=== PATIENT | female | born 1945 | race Caucasian/White ===

== ENCOUNTER 2025-10-05 03:21 | Inpatient (IN) | payer MEDICARE, BC, SELFPAY ==
--- OUTSIDE RECORDS SUMMARY | 2008-07-01 07:03 | XMS_ITS | Continuity of Care Document ---
Author Organization [facility] Address [address] [place] [address] Phone Care Team Providers Care District Court Reporter Name Role Phone Eduar QUISPE MD, Jordy Unavailable Unavailable Advance Directives Directive Yes / No Effective Date File Name No Information Encounters Encounter Description Practice Location Reason(s) For Visit Diagnoses Date Provider Providers Copied on Encounter [facility], [address], [place], [place], [id number], [place] tel:[phone] No Information 8 Eduar Spence. [address], [place], [place], [facility], [place]. tel:[phone] Referring Provider: Jordy Rodriguez, [address] [place], [place], [facility]. tel:[phone] Family History Family Member Type Diagnosis Age At Onset No Information Payers Payer name Insurance type Covered constitution party ID Authoriza tion(s) [employer] BL [id number] Social History Type Description Quantity Date Captured Comments Sex Female Smoking Status No Information Chief Complaint And Reason For Visit No Information Reason For Referral Reason For Referral No Information History Of Present Illness Encounter Date Complaint History Of Prese nt Illness No Information Functional Status Date Functional Assessmen t No Information Instructions Date Instruction Additional Infor mation No Information Assessments Type Assessment Date No Information Patient Care Teams Name Effective Dates (start - stop) Status Members No Information
--- OUTSIDE RECORDS SUMMARY | 2025-08-26 04:46 | XMS_ITS | Continuity of Care Document ---
Author Organization [facility] Address [address] [address] [place] [address] Phone Care Team Providers Care Retail Merchandising Manager Name Role Phone George Weaver MD Unavailable Unavailable Allergies, Adverse Reactions, Alerts Substance Reaction Status Criticality HYDROMORPHONE HCL Hallucinations Active No Infor mation DIPHENHYDRAMINE HCL Unknown Active No Infor mation soap Rash Active No Information povidone-iodine Rash Active No Informati on DIPHENHYDRAMINE HCL red face Active No Infor mation Medications Medication Instructions Dosage Effective Dates (start - stop) Status Comments levothyroxine 75 mcg capsule take 1 by Oral route every day 1 - Active losartan 50 mg tablet take 1.5 tablet by oral route every day - Active metoprolol tartrate 50 mg tablet take .5 tablet in AM, 1 in PM daily - Active Nexium 40 mg capsule,delayed release take 1 capsule by oral route every day 40 MG - Active ezetimibe 10 mg tablet take 1 tablet by oral route every day 10 MG - Active Flovent HFA 110 mcg/actuation aerosol inhaler inhale 1 puff by inhalation route 2 times every day - Active Aeroneb Go Nebulizer - Activ e azelastine 137 mcg (0.1 %) nasal spray aerosol spray 2 spray by intranasal route every day in each nostril 2 spray - Active azelastine 0.05 % eye drops instill 1 drop by ophthalmic route 2 times every day into affected eye(s) 1.00 drop - Active aspirin 81 mg chewable tablet chew 1 tablet by oral route every day 81 MG - Active ipratropium 0.5 mg-albuterol 3 mg (2.5 mg base)/3 mL nebulization soln inhale 2 milliliter by nebulization route 4 times every day 2 milliliter - Active latanoprost 0.005 % eye drops instill 1 drop by ophthalmic route every day into affected eye(s) in the evening 1.00 drop - Active cyclobenzaprine 10 mg tablet take 1 tablet (10MG) by oral route 1 times every day - Active Symbicort 160 mcg-4.5 mcg/actuation HFA Aerosol Inhaler inhale 2 puff by inhalation route every day in the morning and evening 2 puff - Active Procedures Procedure Date Ugi Endo; W/endo Ultrasound Ex Established Level 3 Established Level 3 Ugi Endo; W/us Guid Asp/bx Ugi Endo; W/endo Ultrasound Ex Ugi Endo; W/us Guid Asp/bx Ugi Endo; W/us Guid Asp/bx Esophageal Motility Study Offic/outpt E&m Estab Low-mod Ugi Endo; W/remov Tumor/les-sn Ugi Endo; W/bx 1/mx Level Iv-surg Path Gross/micro Offic/outpt E&m New Mod-md Ugi Endo; W/bx 1/mx Level Iv-surg Path Gross/micro 13 Level Iv-surg Path Gross/micro 13 Advance Directives Directive Yes / No Effective Date File Name No Information Encounters Encounter Description Practice Location Reason(s) For Visit Diagnoses Date Provider Providers Copied on Encounter [facility], [address] [address], [place], [place], [address], [place] tel:[phone] [facility] No Information 5 Meg Vazquez. [address], [place], [address] , [place]. tel: [phone] [facility], [address] [address], [place], [place], [address], [place] tel:[phone] [facility] Pancreas cyst Jul- 5 Meg Vazquez. [address] [facility] [address], [place], [place], [address] , [place]. tel: [phone] Candy Beckman MD. [phone] [facility], [address] [address], [place], [place], [address], [place] tel:[phone] [facility] Pancreas cyst Jan- 5 Meg Vazquez. [address] [facility] [address], [place], [place], [address] , [place]. tel: [phone] [facility], [address] [address], [place], [address], [place] tel:[phone] [facility] No Information 5 Meg Vazquez. [address] [facility] [address], [place], [address] , [place]. tel: [phone] Referring Provider: George Weaver MD, [address] [facility] [address], [place], [address]. tel:[phone] Established Level 3 [facility], [address] [address], [place], [address], [place] tel:[phone] [facility] GI Symptoms or Concerns (chief complaint) Pancreas cyst Dec-0 5 Meg Vazquez. [address] [facility] [address], [place], [address] , [place]. tel: [phone] Candy Beckman MD. tel:[phone] ng Provider: Dean Harp MD, [address] [place] [address], [place], [address]. [phone] [facility], [address] [address], [place], [address], [place] tel:[phone] [facility] GI Symptoms or Concerns (chief complaint) No Information 5 Meg Vazquez. [address] [facility] [address], [place], [address] , [place]. tel:[phone] Candy Beckman MD. [phone] [facility], [address] [address], [place], [address], [place] tel:[phone] [facility] No Information 4 Meg Vazquez. [address] [facility], [place], [place], [address] , [place]. tel:[phone] Referring Provider: George Weaver MD, [address] [facility] [address], [place], [address]. [phone] [facility], [address] [address], [place], [address], [place] tel:[phone] [facility] No Information 4 Meg Vazquez. [address] [facility] [address], [place], [address] , [place]. tel:[phone] [facility], [address] [address], [place], [address], [place] tel:[phone] [facility] Pancreatic cyst 4 Ryder Hair. [address] [facility] [address], [place], [address] , [place]. tel:[phone] Candy Beckman MD. tel:[phone] [facility], [address] [address], [place], [address], [place] tel:[phone] [facility] Choledocholith iasis 3 Ryder Hair. [address], [address], [place], [address] , [place]. tel: [phone] [facility], [address] [address], [place], [address], [place] tel:[phone] [facility] No Information 3 Ryder Hair. [address] [facility] [address], [place], [address] , [place]. tel: [phone] Referring Provider: Reginaldo Neves, [address] [facility] [address], [place], [address]. tel: [phone] [facility], [address] [address], [place], [address], [place] tel:[phone] [facility] No Information 3 Ryder Hair. [address] [facility] [address], [place], [address] , [place]. tel: [phone] [facility], [address] [address], [place], [address], [place] tel:[phone] [facility] Pancreatic cyst 2 Ryder Hair. [address] [facility] [address], [place], [address] , [place]. tel: [phone] [facility], [address] [address], [place], [address], [place] tel:[phone] [facility] No Information 2 Ryder Hair. [address] [facility] [address], [place], [address] , [place]. tel: [phone] Referring Provider: Reginaldo Neves, [address] [facility] [address], [place], [address]. tel:[phone] [facility], [address] [address], [place], [address], [place] tel:[phone] [facility] No Information 2 Ryder Hair. [address] [facility], [address], [place], [address] , [place]. tel: [phone] [facility], [address] [address], [place], [address], [place] tel:[phone] [facility] No Information 2 Ryder Hair. [address] [facility] [address], [place], [address] , [place]. tel: [phone] Referring Provider: Yancy Elliott MD, [address] [place] [address], [address]. tel:[phone] [facility], [address] [address], [place], [address], [place] tel:[phone] [facility] Pancreatic cyst 2 Ryder Hair. [address] [facility], [address], [place], [address] , [place]. tel: [phone] Candy Beckman MD. [phone] [facility], [address] [address], [place], [address], [place] tel:[phone] [facility] No Information 2 Ryder Hair. [address] [facility], [address], [place], [address] , [place]. tel: [phone] [facility], [address] [address], [place], [address], [place] tel:[phone] [facility] Pancreatic cyst 1 Dale Roberts. [address] [facility] [address], [place], [address] , [place]. tel: [phone] [facility], [address] [address], [place], [address], [place] tel:[phone] [facility] GI Symptoms or Concerns (chief complaint) Dysphagia, unspecified 1 Dwayne Navarro. [address] [facility] [address], [place], [address] , [place]. tel:[phone] Candy Beckman MD. tel:[phone] ng Provider: Referral Self, USE FOR SELF REFERRALS. [facility], [address] [address], [place], [address], [place] tel:[phone] [facility] No Information 1 Dwayne Navarro. [address] [facility] [address], [place], [address] , [place]. tel:[phone] Offic/outpt E&m Estab Low-mod [facility], [address] [address], [place], [address], [place] tel:[phone] [facility] GI Symptoms or Concerns (chief complaint) Esophageal dysphagiaDuode nal adenoma 1 Malachi Washington. [address] [facility] [address], [place], [address] , [place]. tel:[phone] Candy Beckman MD. tel:[phone] Provider: Referral Self, USE FOR SELF REFERRALS. [facility], [address] [address], [place], [address], [place] tel:[phone] [facility] Polyp of duodenumEpigas tric painNausea with vomiting, unspecifiedBen ign neoplasm of duodenumBenign neoplasm of duodenum 1 Malachi Washington. [address] [facility] [address], [place], [address] , [place]. tel:[phone] Candy Beckman MD. tel:[phone] Provider: Referral Self, USE FOR SELF REFERRALS. Offic/outpt E&m New Mod-hi [facility], [address] [address], [place], [address], [place] tel:[phone] [facility] GI Symptoms or Concerns (chief complaint) Non-intractabl e vomiting with nausea, unspecified vomiting typeEpigastric painConstipati on, unspecified constipation type 0 Malachi Washington. [address] [facility], [facility] [address], [place], [place], [address] , [place]. tel:[phone] Candy Beckman MD. tel:[phone] Provider: Referral Self, USE FOR SELF REFERRALS. [facility], [address] [address], [place], [place], [address], [place] tel:[phone] [facility] No Information 0 Ty Purcell. [address] [facility], [facility] [address], [place], [place], [address] , [place]. tel:[phone] [facility], [address] [address], [place], [place], [address], [place] tel:[phone] [facility] Gastroduodenal Dis NosHiatal HerniaNausea With VomitingAbdomi nal Pain, UnspecifiedGas troduodenal Dis NosAbdominal Pain, UnspecifiedNau sea With VomitingHiatal Hernia 3 Ty Purcell. [address] [place] [address], [facility] [address], [place], [place], [address] , [place]. tel:[phone] Referring Provider: Candy Beckman MD [place], [address] [facility] [place], [address]. tel:[phone] Family History Family Member Type Diagnosis Age At Onset Father Problem (finding) cancer of colon Brother Problem (finding) Alive and well Brother Problem (finding) Alive and well Mother Problem (finding) gallbladder disease Sister Problem (finding) Lymphoma Sister Problem (finding) Alive and well Immunizations Vaccine Date Status Comments Influenza, adjuvanted, inactivated, trivalent, injectable, preservative free administered Note: [facility] bi-directional interface ; Source: Other Registry Influenza, adjuvanted, inactivated, quadrivalent, injectable, preservative free administered Note: [facility] bi-directional interface ; Source: Other Registry Influenza, high-dose, split virus, quadrivalent, injectable, preservative free administered Note: [facility] bi-direct ional interface ; Source: Other Registry influenza, high-dose seasona l, quadrivalent, 0.7mL dose, preservative free administered Note: [facility] bi-direct ional interface ; Source: Other Registry SARS-COV-2 (COVID-19) vaccin e, mRNA, spike protein, LNP, bivalent, preservative free, 50 mcg/0.5 mL or 25 mcg/0.25 mL dose administered Note: [facility] bi-direct ional interface ; Source: Other Registry SARS-COV-2 (COVID-19) vaccin e, mRNA, spike protein, LNP, bivalent booster, preservative free, 50 mcg/0.5 mL or 25 mcg/0.25 mL dose administered Note: [facility] bi-direct ional interface ; Source: Other Registry SARS-COV-2 (COVID-19) vaccin e, mRNA, spike protein, LNP, preservative free, 30 mcg/0.3mL dose, joseph-sucrose formulation administered Note: [facility] C bi- directional interface ; Source: Other Registry Influenza, adjuvanted, inactivated, quadrivalent, injectable, preservative free administered Note: [facility] bi-directional interface ; Source: Other Registry influenza, seasonal vaccine, quadrivalent, adjuvanted, 0.5mL dose, preservative free administered Note: [facility] bi-di rectional interface ; Source: Other Registry influenza, seasonal vaccine, quadrivalent, adjuvanted, .5mL dose, preservative free administered Note: [facility] bi-di rectional interface ; Source: Other Registry SARS-COV-2 (COVID-19) vaccin e, mRNA, spike protein, LNP, preservative free, 30 mcg/0.3mL dose administered Note: [facility] bi-direct ional interface ; Source: Other Registry SARS-COV-2 (COVID-19) vaccin e, mRNA, spike protein, LNP, preservative free, 30 mcg/0.3mL dose administered Note: [facility] bi-direct ional interface ; Source: Other Registry SARS-COV-2 (COVID-19) vaccin e, mRNA, spike protein, LNP, preservative free, 30 mcg/0.3mL dose administered Note: [facility] bi-direct ional interface ; Source: Other Registry Influenza, adjuvanted, inactivated, quadrivalent, injectable, preservative free administered Note: [facility] bi-directional interface ; Source: Other Registry influenza, seasonal vaccine, quadrivalent, adjuvanted, 0.5mL dose, preservative free administered Note: [facility] bi-di rectional interface ; Source: Other Registry influenza, seasonal vaccine, quadrivalent, adjuvanted, .5mL dose, preservative free administered Note: [facility] bi-di rectional interface ; Source: Other Registry tetanus toxoid, reduced diphtheria toxoid, and acellular pertussis vaccine, adsorbed administered Note: [facility] b i-directional interface ; Source: Other Registry Influenza, adjuvanted, inactivated, trivalent, injectable, preservative free administered Note: [facility] bi-directional interface ; Source: Other Registry Seasonal trivalent influenza vaccine, adjuvanted, preservative free administered Note: [facility] bi-direct ional interface ; Source: Other Registry Influenza, adjuvanted, inactivated, trivalent, injectable, preservative free administered Note: [facility] bi-directional interface ; Source: Other Registry Seasonal trivalent influenza vaccine, adjuvanted, preservative free administered Note: [facility] bi-direct ional interface ; Source: Other Registry Influenza, adjuvanted, inactivated, trivalent, injectable, preservative free administered Note: [facility] bi-directional interface ; Source: Other Registry Seasonal trivalent influenza vaccine, adjuvanted, preservative free administered Note: [facility] bi-direct ional interface ; Source: Other Registry Influenza, high-dose, split virus, trivalent, injectable, preservative free administered Note: [facility] bi-direct ional interface ; Source: Other Registry influenza, high dose seasona l, preservative-free administered Note: [facility] bi-direct ional interface ; Source: Other Registry Afluria Qd administered Note: [facility] bi-directional interface ; Source: Other Registry Afluria Qd administered Note: [facility] bi-directional interface ; Source: Other Registry Afluria Qd administered Note: [facility] bi-directional interface ; Source: Other Registry Afluria Qd administered Note: [facility] bi-directional interface ; Source: Other Registry tetanus and diphtheria toxoi ds, adsorbed, preservative free, for adult use (5 Lf of tetanus toxoid and 2 Lf of diphtheria toxoid) administered Note: [facility] bi-direct ional interface ; Source: Other Registry Pneumovax 23 administered Note: [facility] bi-d irectional interface ; Source: Other Registry zoster vaccine, live administered Note: [facility] bi-directional interface ; Source: Other Registry Novel [id number], all formulations administered Note: [facility] bi-direct ional interface ; Source: Other Registry Influenza, split virus, trivalent, injectable, contains preservative administered Note: [facility] bi-direct ional interface ; Source: Other Registry Influenza, seasonal, injectable administe red Note: [facility] bi- directional interface ; Source: Other Registry Influenza, split virus, trivalent, injectable, contains preservative administered Note: [facility] bi-direct ional interface ; Source: Other Registry Influenza, seasonal, injectable administe red Note: [facility] bi- directional interface ; Source: Other Registry Influenza, split virus, trivalent, injectable, contains preservative administered Note: [facility] bi-direct ional interface ; Source: Other Registry Influenza, seasonal, injectable administe red Note: [facility] bi- directional interface ; Source: Other Registry Influenza, split virus, trivalent, injectable, contains preservative administered Note: [facility] bi-direct ional interface ; Source: Other Registry Influenza, seasonal, injectable administe red Note: [facility] bi- directional interface ; Source: Other Registry Influenza, split virus, trivalent, injectable, contains preservative administered Note: [facility] bi-direct ional interface ; Source: Other Registry Influenza, seasonal, injectable administe red Note: [facility] bi- directional interface ; Source: Other Registry Influenza, split virus, trivalent, injectable, contains preservative administered Note: [facility] bi-direct ional interface ; Source: Other Registry Influenza, seasonal, injectable administe red Note: [facility] bi- directional interface ; Source: Other Registry Payers Payer name Insurance type Covered libertarian ID Authorruciha dentoncyndie(s) Medicare NGS MB [id number] [facility] Medicare Supplement BL [id number] Social History Type Description Quantity Date Captured Comments Alcohol Use Details Unknown Caffeine Use Details Unknown Tobacco Use Status No Information Smoking Status No Information Sex Female Chief Complaint And Reason For Visit No Information Reason For Referral Reason For Referral No Information Plan Of Treatment Date Type Action Status Referral Ordered: MRI Abdomen WITH Contrast Appointment date/timeframe: 08/13/2025 [id number] Ordered: MRCP Biliary/Pancreatic Ducts WITHOUT And WITH Contrast Appointment date/timeframe: 05/17/2024 [id number] Ordered: EUS Appointment date/timeframe: 11/09/2021 [id number] Ordered: Esoph Motility Study; Appointment date/timeframe: 01/28/2021 [id number] Ordered: follow-up visit with Felix Ly MD 1 Month Appointment date/timeframe: 1 Month [id number] Ordered: EGD Appointment date/timeframe: 10/30/2020 ordered History Of Present Illness Encounter Date Complaint History Of Prese nt Illness GI Symptoms or Concerns Tavo is a very pleasant 79-year-old woman who we have been following for the last three years for pancreas cyst that was found incidentally when she had cross-sectional imaging for other reasons. She has no family history of pancreas problems. She has never had problems with pancreas, otherwise. The cyst rather large and measures close to 5 cm and there is some septal and cyst wall thickening, but no nodularity or associated mass with it. Her pancreas duct is normal in size. This has always been completely asymptomatic. She has been evaluated by a pancreas surgeon and a conservative approach has been recommended. Her surveillance has been reassuring up to now and her most recent EUS was performed by me last July reveal cyst wall thickening which was sampled and confirmed IPMN, but no high grade dysplasia or carcinoma noted. GI Symptoms or Concerns GI Symptoms or Concerns GI Symptoms or Concerns I had a followup visit with Tavo today. She was first seen by myself on October 06. At that time, she described nausea and vomiting. We had noted that she had an esophagram in 2018, which showed a moderate dysmotility with tertiary contractions and slight stasis. On October 30, she underwent an upper GI endoscopy by myself. Her esophagus appears normal, and midesophageal biopsies were normal. Gastric biopsies were normal. She did have a small, 5 mm, tubular adenoma in the duodenum, which was completely removed. At that visit, I had recommended an esophageal manometry, Tavo declined. She wanted to further discuss her symptoms.We had an extensive discussion regarding her symptoms. Although, she initially described nausea, she now states that her symptoms are different than nausea. She notes that she gets hungry. If she eats, she often has a sensation that food is sitting in her chest, and not getting to her stomach. This most frequently occurs with solid foods such as meat GI Symptoms or Concerns Tavo pre sents today for evaluation of nausea and vomiting. She states that she has nausea almost on a daily basis. This most commonly occurs in the morning, and seems to improve as the day goes on. She has had 2 episodes of vomiting associated with this. One was in mid August, and the other in early September. Both of these episodes occurred approximately 4 hours after eating a meal. She states that she vomited up a large amount of what seemed to her undigested food. She noted epigastric pain prior to these episodes. She denies any hematemesis. She has not had any vomiting since. She does note that she has been trying to eat a bland diet, as she is concerned due to the nausea that she will have further vomiting.She does have epigastric burning on a daily basis. She notes that sometimes she will have a sensation of acid in the back of her throat. This occurs on a near daily basis. She denies any true heartburn. She often feels that food or pills are stuck in the back of Functional Status Date Functional Assessmen t No Information Instructions Date Instruction Additional Infor jhonathan At this point, I do recommend ongoing surveillance and will plan on doing another endoscopic ultrasound next month. Based on those findings, we can make further recommendations about surveillance intervals. She asked her questions and has a good understanding of the issues at hand. Related to Pancreas cyst 1. Esophageal manome try to evaluate for esophageal motility disorders.2. Further recommendations after this testing.Thank you for allowing me to participate in the care of this patient. Please feel free to contact me should any questions arise. Related to Esophageal dysphagia Assessments Type Assessment Date No Information Patient Care Teams Name Effective Dates (start - stop) Status Members No Information
[2025-10-05] VITALS (20 sets, daily range): BP systolic 114–163; BP diastolic 55–87; PULSE 74–96; RESP 15–20; TEMP 36.8–38.3; O2SAT 86–98; BMI 26.6; BMI 23.6
--- OUTSIDE RECORDS SUMMARY | 2025-10-05 03:23 | XMS_ITS | Clinical Summary ---
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 Dose may be repeated after 2 hours. Do not exceed 200 mg in 24 hoursActive Multiple Vitamins-Minerals (MULTIVITAL) TABS Take by mouth.Active HYDROcodone-acetaminophen (NORCO) 5-325 MG per tablet Take 1 Tab by mouth every six hours as needed for Pain. Acetaminophen should be limited to 4000 mg per day. 12 Tab ctive Active Problems No known active problems Surgical History SurgeryDateSite/LateralityCommentsJOINT REPLACEMENT TONSILLECTOMY TUBAL LIGATION MASTECTOMY SKIN BIOPSY Medical History Medical HistoryDateCommentsMigrainesMalignant neoplasm of other specified sites Social History Tobacco UseTypesPacks/DayYears UsedDateSmoking Tobacco: FormerAlcohol Use Standard Drinks/WeekCommentsNo0 (1 standard drink = 0.6 oz pure alcohol) CommentsUnknownSex and Gender InformationValueDate RecordedSex Assigned at Not on fileLegal TgvXzdwcy99/14/2013 4:43 AM CSTGender IdentityNot on fileSexual OrientationNot on file Last Filed Vital Signs Vital SignReadingTime TakenCommentsBlood Fffsrgod646/85011/10/2011 6:00 PM [employer] Eftot74961 6:00 PM IAEAychowvnxzc71.2 ??C (99 ??F)11/10/2011 6:00 PM [employer] Respiratory Rtlw455111/10/2011 6:00 PM CSTOxygen Rstscbyoay83%11/10/2011 6:00 PM CSTInhaled Oxygen Concentration--Wxqqcs54.6 kg (160 lb)11/10/2011 6:00 PM [employer] Wopenp034.1 cm (5' 5)11/10/2011 6:00 PM CSTBody Mass Index26.63011/10/2011 6:00 PM [employer] Plan of Treatment Not on file Insurance Care Teams Team MemberRelationshipSpecialtyStart DateEnd Date Elsewhere, Pcp PCP - General11/10/11
--- OUTSIDE RECORDS SUMMARY | 2025-10-05 03:23 | XMS_ITS | Clinical Summary ---
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 Name Role Phone Trudy Witt Heaven Unavailable [phone] Supriya Romero Unavailable [phone] Cari Glasgow MD Unavailable Jeremy Yeung DO Unavailable [phone] Ralph Puri MD Primary Care Provider Rafaela Valles Unavailable [phone] Allergies Active AllergyReactionsCriticalityNoted DateCommentsDiphenhydramineOther - Describe In Comment QkrxzGofcjqa83/07/2012 face turned bright red on multiple occasions with taking benadryl XshookiyclyfFudyxtmFjnzqvj67/02/9299VsbfuojdvitbsLpmtfkkxcmzjstSircsvs33/22/2015 LkyogmrvupfZknhjpuNqyvyfz18/02/5982FmthwahtvvxoNgucfrgOyguxld95/29/2014 Povidone-IbbnhqAwimOuuxhwv30/30/2010 Betadine scrub caused rash on hands JtryKcohTrpjjok56/10/2021Tetanus Vaccines And ToxoidOther - Describe In Comment UbeibHvacodv32/19/2018 Arm became very swollen and red Medications MedicationSigDispense QuantityRefillsLast FilledStart DateEnd DateStatus cholecalciferol (VITAMIN D3) 1,000 unit capsule Take 1 capsule by mouth once daily.ctive aspirin (ECOTRIN) 81 mg enteric coated tablet Indications: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 18 mL 4Active latanoprost 0.005 % ophthalmic solution Indications:Primary open angle glaucoma of both eyes, mild stagePlace 1 Drop into both eyes once daily in the evening. 7.5 mL 5Active amoxicillin 500 mg tablet 5Active albuterol-ipratropium (2.5-0.5 mg) in 3 mL NEBULIZATION solution Indications:Moderate persistent asthma without complication (HC)Inhale 3 mL via a nebulizer every 6 hours if needed for Shortness of Breath 1st choice. 180 mL 5Active albuterol HFA (PRO-AIR; VENTOLIN; PROVENTIL) 90 mcg/actuation inhaler Indications:Moderate persistent asthma without complication (HC)Inhale 2 Puffs by mouth every 4 hours if needed for Wheezing 1st choice or Shortness of Breath 2nd choice. 1 Each 5Active azelastine 137 mcg/actuation (ASTELIN) nasal spray Indications:Rhinitis, chronicInhale 2 Sprays into affected nostril(s) two times daily. 90 mL 5Active budesonide-formoteroL (SYMBICORT,BREYNA) 160-4.5 mcg/actuation (160-4.5 mcg each actuation) inhaler Indications:Asthma, unspecified asthma severity, unspecified whether complicated, unspecified whether persistent (HC)Inhale 2 Puffs by mouth two times daily. 3 Each 5Active fluticasone propionate (FLOVENT) 110 mcg/Actuation inhaler Indications:Moderate persistent asthma without complication (HC)Use 1 puff twice daily January-may 1 Each 5Active Nebulizer Indications:Moderate persistent asthma without complication (HC)Nebulizer Supplies, disposable neb kit x 4, reuseable neb kit x 1, mask x 1, filters x 1, tubing. Frequency of use: daily; Medication: DuoNeb Length of need: 99 months 1 Each 5Active metoprolol tartrate (LOPRESSOR) 50 mg tablet Indications:Primary hypertensionTake 1/2 tab in AM and 1 tab in PM. May take additional 25 mg if blood pressure is greater than 150/90. 90 Tablet 5Active durable medical equipment (DME) Indications:H/O left mastectomy3 mastectomy bras, left breast cancer status post mastectomy 3 Each 5Active durable medical equipment (DME) Indications:H/O left mastectomyLeft breast form/prosthesis - history of left mastectomy 1 Each 5Active ondansetron (ZOFRAN ODT) 4 mg disintegrating tablet Indications:NauseaPLACE TAKE 1 TABLET (4 MG) ON THE TONGUE EVERY 8 HOURS NEEDED FOR NAUSEA AND VOMITING 30 Tablet 5Active esomeprazole delayed release capsule (NEXIUM) 40 mg Indications:Chronic GERDTAKE 1 CAPSULE BY MOUTH EVERY DAY BEFORE A MEAL 90 Capsule 5Active losartan (COZAAR) 50 mg tablet Indications:Primary hypertensionTAKE 1.5 TABLETS BY MOUTH ONCE DAILY. 135 Tablet 5Active ezetimibe (ZETIA) 10 mg tablet Indications:Bilateral carotid artery stenosis,Hyperlipidemia LDL goal <100TAKE 1 TABLET BY MOUTH EVERY DAY 90 Tablet 5Active levothyroxine (SYNTHROID) 75 mcg tablet Indications:Hypothyroidism (acquired)TAKE 1 TABLET (75 MCG) BY MOUTH BEFORE BREAKFAST 90 Tablet 5Active cyclobenzaprine (FLEXERIL) 10 mg tablet Indications:Neck painTAKE 1 TABLET BY MOUTH EVERYDAY AT BEDTIME 90 Tablet 5Active ezetimibe (ZETIA) 10 mg tablet Indications:Bilateral carotid artery stenosis,Hyperlipidemia LDL goal <100Take 1 Tablet (10 mg) by mouth once daily. 90 Tablet /10/2024Discontinued levothyroxine (SYNTHROID) 75 mcg tablet Indications:Hypothyroidism (acquired)Take 1 Tablet (75 mcg) by mouth before breakfast. 90 Tablet /2025Discontinued losartan (COZAAR) 50 mg tablet Indications:Primary hypertensionTake 1.5 Tablets (75 mg) by mouth once daily. 135 Tablet Discontinued esomeprazole (NEXIUM) 40 mg capsule Indications:Chronic GERDTake 1 Capsule (40 mg) by mouth once daily before a meal. 90 Capsule /10/2024Discontinued ondansetron (ZOFRAN ODT) 4 mg disintegrating tablet Indications:NauseaPlace 1 Tablet (4 mg) on the tongue every 8 hours if needed for Nausea/Vomiting. 30 Tablet /20241016/Discontinued cyclobenzaprine (FLEXERIL) 10 mg tablet Indications:Neck painTAKE 1 TABLET BY MOUTH EVERYDAY AT BEDTIME 90 Tablet Discontinued(Reorder (E-cancel not sent)) Active Problems ProblemNoted DateDiagnosed DatePancreas cyst08/18/2025 Overview (09/16/2025): Endoscopic ultrasound 01/2025. Following the [facility], MRI 1 year planned. Tinnitus, depxdhkid21/06/2025History of CVA (cerebrovascular accident)09/19/2024 Overview (09/19/2024): Left parieto-occipital infarction noted 2016 Chronic GERD09/19/2024Hyperlipidemia LDL goal <7484609/19/2024rimary hypertension 12/18/20232898Ilqanrrqeslk28/16/2023 Overview (07/31/2023): Recommend zoledronic acid, patient undecided History of breast qclvhj0607/24/2023Venous dntbgeocvdspu66/10/2021Hypothyroidism (acquired)07/25/2021Myopia of both eyes with astigmatism and presbyopia 02/27/2018Primary open angle glaucoma of both eyes, mild stage03/06/2017 Bilateral jodaplkbtfee73/22/2017Moderate persistent asthma without complication 03/23/2010 Overview (11/22/2011): Followed by pulmonary- [facility] Carotid kuppgyad80/30/2009 Overview (09/19/2024): Ultrasound 11/2019: Mild plaque formation < 50% stenosis in RCA and Moderate plaque formation 50-69% stenosis in LCA. Stable 09/2024 Aimfakndmqh73/15/2008 Overview (09/29/2008): Component Reference Range 09/11/2007 01/24/2008 GLUCOSE, HEMOCUE 65-100 mg/dL 118 (H) 107 (H) Monoclonal eqnqurwxpmstpbk95/28/2008 Overview (12/10/2013): Needs annual CBC and immunofixation, serum. Has been low but stable. decreased igG, IgM monogammopathy, check levels yearly- (saw Dr. Mckeon in the past) Bone marrow normal Bone marrow normal beginning of this year- saw Rosalina Mckeon who recommended repeating IGG, IGM yearly. Watch for 1 gm /dl of Igm and check COMPLETE BLOOD COUNT -HEMOGLOBIN/WHITE BLOOD CELLS/PLATELETS every 6 months. Watch for anemia, etc. Sensorineural hearing loss, wpdracpka21/17/2007Migraine, unspecified, without mention of intractable migraine without mention of status migrainosus Overview (02/02/2011): migraines- Intermittent. Cardiology thought calcium channel kanu may be good for both blood pressure and migraines. Seeing neurologist yearly last visit 01/24 Resolved Problems ProblemNoted DateDiagnosed DateResolved DateHistory of bcgodbswp84/09/2023 09/19/2024Status post left rivqiqynwz89/20/202312/eripheral vascular disease, aczdpjzbbvr66/20/202310/denoma of arikvwyj41 Guaiac + stool/ancreatic cyst/aroxysmal atrial dqraemrzvvnr68/10/202101/enign neoplasm of duodenum, jejunum, and ileum/olyp of bpczutpf67/06/2023Tinea corporis /Essential izjpjqcmkqoy28ilateral lower extremity edemaerebrovascular accident (CVA) due to ojjsefhgi34 Overview (10/02/2017): September 2017: Right arm symptoms, and some confusion. MRI Brain 09/22/17: CONCLUSION: 1. Several foci of subacute infarction in the left occipital lobe and superolateral left frontal lobe. 2. Age-related changes as discussed. September 2017: Saw Dr. Aragon and ordered YARED, suggested Aspirin. Guaiac positive ctszir11Esophageal spnaqbzqr82/09/2017 09/19/2024lepharitis of both upper and lower esesmu17Statin gizfybnyvid59alpitationsShortness of stkwvp11Short of breath on xvknysoj95/13/nemia, normocytic yztxwebitcvf27Hyperlipidemia Actinic skouwjgvv63Cutaneous hornSkin tags Chronic xzwabpst52/01/0009Hznujagufb72/06/2011 07/31/2023 Overview (11/21/2010): 11/12/10- osteopenia- both femoral necks. Need repeat test 2012 Knee tszwiyylzhbv11/03/Cutaneous hornVN (avascular necrosis of bone)Medial meniscus tear03/11/2010 12/10/2013 Overview (11/22/2011): Knee arthroscopy and then later partial knee replacement- due to Avascular necrosis Xsgyhbwdwzvpin33Undiagnosed cardiac afvhept7607/27/2009 07/24/2023 Overview (11/21/2017): Normal echocardiogram 07/24 and 09/2017 Prolonged Q-T interval on ECG Overview (08/14/2009): Long qt on last EKG and stopped amrix, and starting valium office visit 07/20/09 (and stopped amrix) Echocardiogram- They can't rule out ventricular septal defect - she is seeing pattern clerk the in [place] Said cardioloist thought her amrix would be fine (but that nortriptiline is not). I said that I would like her to get a written note from pattern clerk about that because I am uncomfortable giving herthat with her long QT. She is planing on bloodwork, MRI cardiac, and adenosine stress with Cardiology Oral uzwkzja74 Overview (07/16/2008): Magic mouthwash Comment: Decadron 0.5mg / 5cc X 60cc Nystatin 100,000 X 60 cc Tetracycline 125mg/5cc X 60 cc Benadryl 12.5 mg/5cc X 60 cc Total 240 cc Other abnormal cwscsmk80Other abnormal misfgpy9809/27/2007 09/29/2008Other selective immunoglobulin jyphxugaqdep34 Temporomandibular joint disorders, pwtxxkmxibi12Esophageal cahezl29 Overview (12/10/2013): Chronic nausea, dyspepsia, negative workup. EGD 10/22 mild esophagitis, Colonoscopy 12/20 negative, needs repeat 2011. also previous endoscopy with gastritis. Fqfbmfyrzsn59 Overview (10/29/2009): amrix- office visit 10/29/09 Took amrix yetst AM, not today ( in July when I heard murmur she wason amrix, and then didn't hear it and pattern clerk didn't whiel off, then again heard today and stopped amrix yesterday Depressive disorder, not elsewhere dawbgujlbw41BELL'S PALSY-L SIDE09/13/2005Dyspepsia and other specified disorders of function of stomach 12/10/2013 Overview (12/10/2013): BREAST CANCER, LEFT PBYYZN2802/15/2007TARDIVE OUEHVPUEYZ55/09/2023 Overview (05/21/2007): From years of compazine for nausea and migraines Other Specified Diseases of Blood and Blood-Forming Xwvqvg9212/10/2013REAST CANCER, LEFT FLNHOC6907/24/2023 Overview (02/21/2023): MASTECTOMY February 2023: Had Genetic Counseling visit and testing: hereditary cancer genetic testing did not find a causative mutation in the genes analyzed, GAYLA (obstructive sleep apnea)05/12/2023 Encounters DateTypeDepartmentCare AsucQwtovedytja24/02/2025 11:00 AM CSTOffice Visit [facility] [address] [place] [address] Ralph Puri MD Medicare ANNUAL (subsequent) Visit09/16/20254523Vkwpao71/29/2025Refill [facility] [address] [place] [address] Ralph Puri MD Refill Request (Esomeprazole Delayed Release Capsule, Losartan, Ezetimibe, Levothyroxine)09/05/2025Refill [facility] [address] [place] [address] Ralph Puri MD Refill Request (Ondansetron)08/19/2025 2:00 PM CSTOffice Visit [facility] [address] [place] [address] Ralph Puri MD Pain (Left side rib pain); Immunization/Eiizfzbll29/04/1092Psmwdh68/29/2025 9:11 AM CDT - 08/13/2025 11:[address] [facility] [address] [place] [address] Dean Harp MBBS Pancreas cyst (HC)08/13/20250946Jklryr88/07/2025Telephone [facility] [address] [place] [address] Ralph Puri MD Medication Management (BREAST FORM/PRESCRIPTION)07/20/2025Refill [facility] [address] [place] [address] Ralph Puri MD Refill Request (Metoprolol Tartrate)07/09/2025 8:15 AM CDTOffice Visit [facility] [address] [place] [address] [address] [facility] [address] [place] [address] Jeremy Yeung, Follow Up (Annual Asthma)07/09/2025Travelfrom Last 3 Months Immunizations ImmunizationAdministration DatesNext DueAMB Influenza, IIV3 (Age >=3 years)(Flu Clinic Only)07/04/2012MB Influenza, IIV4 PF (=>6 mos Flulaval,Fluzone Fluarix)(Flu Clinic Only)08/01/2014COVID-19 vaccine (Moderna 50mcg/0.5mL) 12YO+ BIVALENT PF, MDV12COVID-19 vaccine (Pfizer-BioNTech 30mcg/0.3mL) PF, MDV 12/26/2020,12/05/2020Influenza A (H1N1), Inactivated (Age >=3 Years)10/14/2009 Influenza, High-dose Vueqfishupm50/01/2016Influenza, High-dose Quadrivalent Qtllchanczq35/11/2022Influenza, IIV3 (Age >=3 years)07/23/2013,07/01/2010, 10/14/2009,08/14/2009,08/11/2008,08/07/2007,08/30/2006,09/06/2005,08/27/2003 Influenza, WZN712/12/2014Influenza, Inactivated AIIV4 (Age 65+ Years) Preserv Free07/24/2023,08/13/2021,07/17/2020Influenza, Inactivated IIV3 (Age 65+ Years) Preserv Free08/19/2025,08/26/2024,08/06/2019,08/02/2018,07/31/2017Pneumococcal Conj 20-valent (Prevnar 20)09/16/2025Pneumococcal Poly,23-Valent (Pneumovax) 10/06/2011Pneumococcal conj 13-Valent (Prevnar 13)07/09/2015Td (Age >=7 Years) 09/06/2002Td, Preservative Free (age >= 7 Years)10/06/2011Tdap10/23/2019Zoster (Zostavax-ZVL, live)10/14/2009 Family History Medical HistoryRelationNameCommentsAlcohol/DrugFatherJamesArthritisFatherJamesOA CancerFatherJamesMelanomaCancer-colonFatherJamesfelt to be a primary-- early 70'sCancer-prostateFatherJamesHypertensionFatherJamesHeart DiseaseMaternal Grandfatherfluid around heartLung cancerMaternal GrandmotherArthritisMother NellieHeart DiseaseMotherNellieEKG showed old RI-- discovered 79 yoOsteoporosis MotherNelliedx'd in 70'sGeneticOtherFather Glaucoma~Great Aunt Macular DegenerationCancer-colonPaternal GrandmotherTeklaBlood DiseasePaternal Uncle LUPUSAsthmaSisterGayleLymphomaSisterGayleThyroid nodulesSisterGayleMelanomaSon 2 AllergiesSon 3N/ACancer-breastNo Family HistoryCancer-ovarianNo Family History RelationNameStatusCommentsBrotherAliveFatherJamesDeceasedMaternal Grandfather DeceasedMaternal GrandmotherDeceasedMotherNellieDeceasedOtherPaternal GrandfatherDeceasedPaternal GrandmotherTeklaDeceasedPaternal UncleSisterGayle AliveSon 1AliveChadSon 2AliveKyleSon 3N/A Social History Tobacco UseTypesPacks/DayYears UsedDateSmoking Tobacco: OabtesCxodfuvmtb283 01/14/1967 - 01/14/1997Passive Smoke Exposure: NeverSmokeless Tobacco: Never Tobacco Cessation:Counseling Given: Not Answered Alcohol UseStandard Drinks/WeekCommentsNot Currently0 (1 standard drink = 0.6 oz pure alcohol)nonePHQ-2AnswerDate RecordedPHQ-2 TOTAL WIYKO609Social ConnectionsAnswerDate RecordedDo you often feel lonely or isolated from those around you?lcohol UseAnswerDate RecordedHow often do you have a drink containing alcohol?verage Number of DrinksNot on file 09/16/2025How often do you have five or more drinks on one occasion? Financial Resource StrainAnswerDate RecordedDifficulty of Paying Living Expenses Difficulty of Paying Living ExpensesNot on file08/19/2025Food InsecurityAnswerDate RecordedDo you worry your food will run out before you are able to buy more?Transportation NeedsAnswerDate RecordedDoes lack of transportation keep you from medical appointments?Does lack of transportation keep you from work, meetings or getting things that you need?1 08/19/2025Housing StabilityAnswerDate RecordedWhat is your housing situation today?UtilitiesAnswerDate RecordedDo you have trouble paying for utilities (for example, heat, electricity, water, phone)? CommentsNoSex and Gender InformationValueDate RecordedSex Assigned at BirthNot on fileLegal LgpAnzrci75/14/2013 6:05 AM CSTGender IdentityNot on fileSexual OrientationNot on fileOccupationIndustryJob Start DateJob End Dateretired RNNot on fileNot on fileNot on file Obstetrics History GravidaParaTermPretermABIABSABEctopicMultipleLivingLive [id number] OutcomeGATotal LaborLabor/2nd/7oePxevmmNqfGtpeEcdjHJOYpeF8B9BxlwFooaEykmNnfv PretermPretermIABIABSABSABEctopicEctopic Last Filed Vital Signs Vital SignReadingTime TakenCommentsBlood Hyyrovvi886/6609/16/2025 11:24 AM CATHETER BUILDER Juyas348509/16/2025 11:24 AM JGVYgfgrnqmsky42.5 ??C (97.7 ??F)04/28/2025 1:49 PM CDTRespiratory Dyzc741507/09/2025 8:15 AM CDTOxygen Tqhakgjanf94%07/09/2025 8:15 AM CDTInhaled Oxygen Concentration--Znbmkq54.9 kg (154 lb)09/16/2025 11:24 AM GEMZkokpi390 cm (5' 3)09/16/2025 11:24 AM CSTBody Mass Index27.28111/17/2024 11:24 AM CATHETER BUILDER Plan of Treatment DateTypeDepartmentCare Team (Latest Contact Info)Hjhsbzigtci49/05/2026 1:20 PM CSTOffice Visit [facility] [address] [place] [address] [place] [address] [facility] [place] [address] 11/06/2025 3:00 PM CSTOffice Visit [facility] [address] [place] [address] Rafaela Valles MBBS [address] [place] [address] [place] [address] Health MaintenanceDue DateLast DoneCommentsZoster (shingles) series for age 50+ (2 of 3)RSV vaccine for adults or (1 - 1-dose 75+ series)2021OVID-19 vaccine series (2024- season)2025 08/02/2022, 02/01/2022, 07/21/2021, Additional history existsBMI (ht and wt on same day) for age 18+, 08/19/2025, 07/09/2025, Additional history existsDepression screening for age 12+, 09/19/2024, 09/19/2024, Additional history existsMedicare Wellness for age 65+09/17/2026 09/16/2025, 09/19/2024, 07/24/2023, Additional history existsTetanus booster , 10/06/2011, 09/06/2002Hepatitis C screening for age 18-79 Dwulvsnom81/21/2013DEXA/DXA scan for age 65+Rnrknuzsm08/10/2023, 04/23/2019, 09/25/2015, Additional history existsInfluenza TtuyinsNpimiyhjv84/04/2025, 08/26/2024, 07/24/2023, Additional history existsPneumococcal series for age 50+ Szuzohchn49/02/2025, 07/09/2015, 10/06/2011Hepatitis B series for 19+Aged OutNo longer eligible based on patient's age to complete this topic Medical Devices ImplantedTypeAreaManufacturerDevice IdentifierShelf Expiration DateModel / Serial / LotCmnt Bone Palacos R - [id number] [facility] [employer] 03/16/[id number]# / / [id number] Compnt Sz D Uni High Flex - [id number] Implanted:Qty: 1 on 09/15/2010 at [facility]: [employer] 05/16/[id number]# / / [id number] Tib Sz3 Zuk High Flex Precoat - [id number] Implanted:Qty: 1 on 09/15/2010 at [facility]: [employer] 04/15/[id number]# / / [id number] Surf 10mm Sz 3 Uni High Flex - [id number] Implanted:Qty: 1 on 09/15/2010 at [facility]: [employer] 07/16/[id number]# / / [id number] Iol Zcb00 24.0 - [id number] Implanted:Qty: 1 on 10/12/2015 [facility] [employer] Ugjkzj7204/12/2019ZCB00# / [id number] / Lens Iol Zcb00 24.5 - [id number] Implanted:Qty: 1 on 10/26/2015 [facility] [employer] Fqmqpn0707/17/2019ZCB00# / [id number] / ExplantedTypeAreaManufacturerDevice IdentifierShelf Expiration DateModel / Serial / LotScrew 48mm Headed - [id number] Explanted:Qty: 2 on 09/15/2010 at [facility]: [employer] 06/16/[id number]# / / [id number] Collapsing Holding - [id number] Explanted:Qty: 1 on 09/15/2010 at [facility]: [employer] 03/16/202030824096-11# / / [id number] Sys Tib Knee Gang Rider Tip - [id number] Explanted:Qty: 1 on 09/15/2010 at [facility]: [employer] 04/15/201536552311-21-36# / / [id number] Headed 33mm Length - [id number] Explanted:Qty: 1 on 09/15/2010 at [facility]: [employer] 06/16/[id number]# / / [id number] Procedures Procedure NamePriorityDate/TimeAssociated DiagnosisCommentsVITAMIN O95Vvyqupl 09/16/2025 12:12 PM CATHETER BUILDER Numbness of right foot TSH WITH DDZWBTCgmxpwb29/02/2025 12:12 PM CATHETER BUILDER Hypothyroidism (acquired) LIPID PANEL W REFLEX MEASURED IHUYufmqsi05/02/2025 12:12 PM CATHETER BUILDER Bilateral carotid artery stenosis MR ABDOMEN MRCP PANCREAS QDWSkpghhc93/29/2025 10:45 AM CDT Pancreas cyst (HC) CA 19-2Jjvks9808/13/2025 9:30 AM CDT Pancreas cyst (HC) PROTIME-ZSQHdfnu27/29/2025 9:30 AM CDT Pancreas cyst (HC) BWJWKFWZXSRgkvg15/29/2025 9:30 AM CDT Pancreas cyst (HC) ZQWDDWVUJZEtybb36/29/2025 9:30 AM CDT Pancreas cyst (HC) WAEKUHUHNXpvuy66/29/2025 9:30 AM CDT Pancreas cyst (HC) GHFOBWXvrvn20/29/2025 9:30 AM CDT Pancreas cyst (HC) HEPATIC FUNCTION VHJBNCgnrj59/29/2025 9:30 AM CDT Pancreas cyst (HC) CBC W PLT NO VSXSBhpyt23/29/2025 9:30 AM CDT Pancreas cyst (HC) BASIC METABOLIC MOWOBFtntj68/29/2025 9:30 AM CDT Pancreas cyst (HC) NNXBDBPLbxna03/29/2025 9:30 AM CDT Pancreas cyst (HC) XR DXA BONE DENSITY 2 SITES GXKBQEfxtabo42/10/2023 2:03 PM CDT Osteopenia, unspecified location Asymptomatic menopausal state ANTI NJLYiukwdq62/21/2013 9:48 AM CATHETER BUILDER Need for hepatitis C screening test from Last 3 Months or Most Recently Relevant to Health Maintenance Results * TSH WITH REFLEX (09/16/2025 12:12 PM CATHETER BUILDER)ComponentValueRef RangeTest Method Analysis TimePerformed AtPathologist SignatureTSH W/REFLEX TO FT41.890.40 - 4.50 mIU/L111/18/2024 3:24 AM CSTQUEST DIAGNOSTICSSpecimen (Source)Anatomical Location / LateralityCollection Method / VolumeCollection TimeReceived Time BloodBLOOD SPECIMEN / UnknownQuest Collect / Otgvmru4209/16/2025 12:12 PM CATHETER BUILDER 09/16/2025 12:12 PM CATHETER BUILDER Narrative [facility] - 09/17/2025 3:24 AM CATHETER BUILDER FASTING:YES FASTING: YES Authorizing ProviderResult TypeResult StatusJustin Yonatan Puri MDCHEMISTRYFinal ResultPerforming OrganizationAddressCity/State/ZIP CodePhone Number [facility] [place] [address] [place] [address], * (ABNORMAL) LIPID PANEL W REFLEX MEASURED LDL (09/16/2025 12:12 PM CATHETER BUILDER) ComponentValueRef RangeTest MethodAnalysis TimePerformed AtPathologist SignatureCHOLESTEROL, NHPHC727(H)<200 mg/dL09/17/2025 3:01 AM CSTQUEST SLMUUGNYBZRHLKFPWPSJPRST492(H)<150 mg/dL09/17/2025 3:01 AM CSTQUEST DIAGNOSTICSComment: If a non-fasting specimen was collected, consider repeat triglyceride testing on a fasting specimen if clinically indicated. Colton et al. J. of Clin. Lipidol. 2015;9:129-169. HDL WAHWXZHDCOD42> OR = 50 mg/dL09/17/2025 3:01 AM CSTQUEST DIAGNOSTICSNON HDL AHSFTCYJUME739(H)<130 mg/dL (calc)09/17/2025 3:01 AM CST[facility] Comment: For patients with diabetes plus 1 major ASCVD risk factor, treating to a non-HDL-C goal of <100 mg/dL (LDL-C of <70 mg/dL) is considered a therapeutic option. CHOL/HDLC RATIO3.8<5.0 (calc)09/17/2025 3:01 AM CSTQUEST DIAGNO[facility]ICS LDL-SEAHNZBJDPH840(H)mg/dL (calc)09/17/2025 3:01 AM CSTQUEST DIAGNOSTICSComment: Reference range: <100 Desirable range <100 mg/dL for primary prevention; <70 mg/dL for patients with CHD or diabetic patients with > or = 2 CHD risk factors. LDL-C is now calculated using the Pham calculation, which is a validated novel method providing better accuracy than the Friedewald equation in the estimation of LDL-C. Steve MAYEN et al. JESÚS. 2013;310(54): 2193-9940 (http://education.Data Impact/faq/BAU279) Specimen (Source)Anatomical Location / LateralityCollection Method / Volume Collection TimeReceived TimeBloodBLOOD SPECIMEN / UnknownQuest Collect / Unknown 09/16/2025 12:12 PM CST09/16/2025 12:12 PM CATHETER BUILDER Narrative [facility] - 09/17/2025 3:01 AM CATHETER BUILDER FASTING:YES FASTING: YES Authorizing ProviderResult TypeResult StatusJustin Ray Khushi MDCHEMISTRYFinal ResultPerforming OrganizationAddressCity/State/ZIP CodePhone Number [employer] [address] [address], [place] [phone] * VITAMIN B12 (09/16/2025 12:12 PM CATHETER BUILDER)ComponentValueRef RangeTest Method Analysis TimePerformed AtPathologist SignatureVITAMIN [id number] - 1100 pg/mL 09/17/2025 3:24 AM CSTQUEST DIAGNOSTICSSpecimen (Source)Anatomical Location / LateralityCollection Method / VolumeCollection TimeReceived TimeBloodBLOOD SPECIMEN / UnknownQuest Collect / Xrqvcfz8909/16/2025 12:12 PM CST09/16/2025 12:12 PM CATHETER BUILDER Narrative [facility] - 09/17/2025 3:24 AM CATHETER BUILDER FASTING:YES FASTING: YES Authorizing ProviderResult TypeResult StatusJustin Ray Khushi MDCHEMISTRYFinal ResultPerforming OrganizationAddressty/State/ZIP CodePhone Number [employer] [address] [address], [place] [phone] * MR ABDOMEN MRCP PANCREAS WWO (08/13/2025 10:45 AM CDT)Anatomical Region LateralityModalityAbdomen, PANCREASMagnetic ResonanceSpecimen (Source) Anatomical Location / LateralityCollection Method / VolumeCollection Time Received Time08/13/2025 12:32 PM CDT Impressions 08/13/2025 12:32 PM CDT 1. Stable pancreas. Cystic lesion possibly a cystadenoma head and uncinate process. 2. No other significant change. Dictated by Mike Lee MD @ 08/13/2025 12:32:27 PM (Electronically Signed) Narrative 08/13/2025 12:32 PM CDT For Patients: As a result of the Cures Act, medical imaging exams and procedure reports are released immediately into your electronic medical record. You may view this report before your referring provider. If you have questions, please contact your health care provider. INDICATION: Cystic pancreatic lesion. TECHNIQUE: Abdominal MRI T1-T2 and post-contrast T1. Diffusion weighting. Contrast: Intravenous gadoliniumClariscan 20 cc. Heavily T2 weighted MRCP with 3D reconstructions. COMPARISON : MRI abdomen 11/11/2024 CT abdomen 07/26/2024 FINDINGS: Pancreas: Multi-septated cystic lesion proximally 4 centimeters in greatest dimension pancreatic head and uncinate process. Lace-like appearance. No suspicious enhancing nodules. Atrophic body and tail of the pancreas with stable mild proximal duct dilatation an occasional dilatation of side branches. Liver: No significant change non cirrhotic. No masses. Biliary tree: Normal caliber no change. Stable gallbladder. Adrenal glands, spleen, kidneys: Stable no change. Lymph nodes: No new adenopathy. Miscellaneous: No ascites. Procedure Note Mike Lee MD - 08/13/2025 For Patients: As a result of the Cures Act, medical imagingexams and procedure reports are released immediately into your electronicmedical record. You may view this report before your referring provider.If you have questions, please contact your health care provider. INDICATION: Cystic pancreatic lesion. TECHNIQUE: Abdominal MRI T1-T2 and post-contrast T1. Diffusion weighting. Contrast: Intravenous gadoliniumClariscan 20 cc. Heavily T2 weighted MRCP with 3D reconstructions. COMPARISON : MRI abdomen 11/11/2024 CT abdomen 07/26/2024 FINDINGS: Pancreas: Multi-septated cystic lesion proximally 4 centimeters in greatestdimension pancreatic head and uncinate process. Lace-like appearance. Nosuspicious enhancing nodules. Atrophic body and tail of the pancreas withstable mild proximal duct dilatation an occasional dilatation of sidebranches. Liver: No significant change non cirrhotic. No masses. Biliary tree: Normal caliber no change. Stable gallbladder. Adrenal glands, spleen, kidneys: Stable no change. Lymph nodes: No new adenopathy. Miscellaneous: No ascites. IMPRESSION: 1. Stable pancreas. Cystic lesion possibly a cystadenoma head and uncinate process. 2. No other significant change. Dictated by Mike Lee MD @ 08/13/2025 12:32:27 PM (Electronically Signed) Authorizing ProviderResult TypeResult StatusDean Harp MBBSMRFinal Result * (ABNORMAL) CBC W PLT NO DIFF (08/13/2025 9:30 AM CDT)ComponentValueRef Range Test MethodAnalysis TimePerformed AtPathologist SignatureWHITE BLOOD COUNT9.0 4.5 - 11.0 thou/cu mm08/13/2025 9:49 AM [facility] LABORATORYRED BLOOD COUNT4.234.00 - 5.20 mil/cu mm08/13/2025 9:49 AM [facility] GPROYWSYSEMFHHJVQHMY20.812.0 - 16.0 g/dL08/13/2025 9:49 AM [facility] BDTHSBRKNASVMXIUVKTQ01.633.0 - 51.0 %08/13/2025 9:49 AM [facility] JSIPYFYWHEYTN6359 - 100 fL08/13/2025 9:49 AM [facility] LABORATORYMCH 30.326.0 - 34.0 pg08/13/2025 9:49 AM [facility] DBVDIOMWQFVYQS37.5(L)32.0 - 36.0 g/dL08/13/2025 9:49 AM [facility] MYOXCWEHCSBHZ48.811.5 - 15.5 %08/13/2025 9:49 AM [facility] LABORATORYPLATELET CDZRY658881 - 440 thou/cu mm 08/13/2025 9:49 AM [facility] AMVMJJMOXCUZT30.5(H)6.5 - 11.0 fL08/13/2025 9:49 AM [facility] LABORATORYNRBC 0.0%08/13/2025 9:49 AM [facility] LABORATORYABS NRBC 0.0thou /cu mm08/13/2025 9:49 AM CDT[facility] UNITCENTRAL LABORATORYSpecimen (Source)Anatomical Location / LateralityCollection Method / VolumeCollection TimeReceived TimeBloodBLOOD SPECIMEN / UnknownVenipuncture / Secepzt8408/13/2025 9:30 AM CDT1 9:36 AM CDT Narrative Authorizing ProviderResult TypeResult StatusDean ROSE HEMATOLOGYFinal ResultPerforming OrganizationAddressCity/State/ZIP CodePhone Number [facility] [address] [address], [place] * AMYLASE (08/13/2025 9:30 AM CDT)ComponentValueRef RangeTest MethodAnalysis TimePerformed AtPathologist WugewykkkHIWBEMO7332 - 100 IU/L1 10:03 AM CDTURN[facility] UNITCENTRAL LABORATORYSpecimen (Source)Anatomical Location / LateralityCollection Method / VolumeCollection TimeReceived Time BloodBLOOD SPECIMEN / UnknownVenipuncture / Nmonxzf2208/13/2025 9:30 AM CDT 08/13/2025 9:37 AM CDT Narrative Authorizing ProviderResult TypeResult StatusDean GERARDOCHEMISTRY Final ResultPerforming OrganizationAddressCity/State/ZIP CodePhone Number [facility] [address] [place] [address], [place] * [place] 19-9 (08/13/2025 9:30 AM CDT)ComponentValueRef RangeTest MethodAnalysis TimePerformed AtPathologist SignatureCA 19-935<36 IU/mL08/13/2025 11:06 AM CDT [facility] LABORATORYSpecimen (Source)Anatomical Location / LateralityCollection Method / VolumeCollection TimeReceived Time BloodBLOOD SPECIMEN / UnknownVenipuncture / Hgbxrsp8808/13/2025 9:30 AM CDT 08/13/2025 9:36 AM CDT Narrative [facility] - 08/13/2025 11:06 AM CDT The test method changed on 10/18/2022. If this test has been used for serial monitoring, rebaselining is recommended. Rebaselining consists of 2 measurements, collected 3-6 weeks apart. The [employer] [place] 19-9 assay is an electrochemiluminescence immunoassay ECLIA performed on [employer] e Every1Mobileassy analyzers. ?? Values obtained with different assay methods may be different and cannot be used interchangeably. ? Biotin supplements may cause clinically significant interference for this test assay. If interference is suspected, it is strongly recomended that biotin is discontinued for at least one week prior to retesting. Authorizing ProviderResult TypeResult StatusDean ROSEBSSEND OUTS Final ResultPerforming OrganizationAddressCity/State/ZIP CodePhone Number [facility] [address] [place] [address], * (ABNORMAL) PROTIME-INR (08/13/2025 9:30 AM CDT)ComponentValueRef RangeTest MethodAnalysis TimePerformed AtPathologist SignatureINR0.9<1. 9:54 AM [facility] XKOWTZJNWLSSUHBAP78.5(L)10.6 - 12.4 sec 08/13/2025 9:54 AM [facility] LABORATORYSpecimen (Source)Anatomical Location / LateralityCollection Method / VolumeCollection TimeReceived TimeBloodBLOOD SPECIMEN / UnknownVenipuncture / Ccebhbs9708/13/2025 9:30 AM CDT1 9:36 AM CDT Narrative [facility] - 08/13/2025 9:54 AM CDT Therapeutic Range 2.0-3.0 for most anticoagulated patients 2.5-3.5 or 4.0 for high risk patients The INR is only used for patients on stable oral anticoagulant therapy. It makes no significant contribution to the diagnosis or treatment of patients whose Protime is prolonged for other reasons. INR results are increased when heparin levels exceed 1.0 U/mL, which corresponds to an aPTT >125seconds if the patient is on UFH. Authorizing ProviderResult TypeResult StatusDean GERARDO HEMATOLOGYFinal ResultPerforming OrganizationAddressCity/State/ZIP CodePhone Number [facility] [address] [address], [place] * PREALBUMIN (08/13/2025 9:30 AM CDT)ComponentValueRef RangeTest MethodAnalysis TimePerformed AtPathologist RzhvthdltDLGKJGLENJ29.220.0 - 40.0 mg/dL08/13/2025 10:29 AM CDST. DOMINIC [facility] LABORATORYSpecimen (Source) Anatomical Location / LateralityCollection Method / VolumeCollection Time Received TimeBloodBLOOD SPECIMEN / UnknownVenipuncture / Ipzvsiq6808/13/2025 9:30 AM CDT1 9:36 AM CDT Narrative Authorizing ProviderResult TypeResult StatusDean ROSECHEMISTRY Final ResultPerforming OrganizationAddressCity/State/ZIP CodePhone Number [facility] [address] [address], [place] * PHOSPHORUS (08/13/2025 9:30 AM CDT)ComponentValueRef RangeTest MethodAnalysis TimePerformed AtPathologist SignaturePHOSPHORUS2.92.5 - 4.5 mg/dL08/13/2025 10:03 AM CDTURN[facility] UNITCENTRAL LABORATORYSpecimen (Source) Anatomical Location / LateralityCollection Method / VolumeCollection Time Received TimeBloodBLOOD SPECIMEN / UnknownVenipuncture / Ohemtcd5808/13/2025 9:30 AM CDT1 9:37 AM CDT Narrative Authorizing ProviderResult TypeResult StatusDean ROSECHEMISTRY Final ResultPerforming OrganizationAddressCity/State/ZIP CodePhone Number [facility] [address] [address], [place] * MAGNESIUM (08/13/2025 9:30 AM CDT)ComponentValueRef RangeTest MethodAnalysis TimePerformed AtPathologist SignatureMAGNESIUM2.21.6 - 2.4 mg/dL08/13/2025 10:03 AM [facility] LABORATORYSpecimen (Source) Anatomical Location / LateralityCollection Method / VolumeCollection Time Received TimeBloodBLOOD SPECIMEN / UnknownVenipuncture / Pabpfzv6108/13/2025 9:30 AM CDT1 9:37 AM CDT Narrative Authorizing ProviderResult TypeResult StatusDean Harp MBBSCHEMISTRY Final ResultPerforming OrganizationAddressCity/State/ZIP CodePhone Number [facility] LAB[facility]ATORY [address] [place] [address], * LIPASE (08/13/2025 9:30 AM CDT)ComponentValueRef RangeTest MethodAnalysis Time Performed AtPathologist XzojmorkwNEMOPF12.713.0 - 60.0 IU/L1 10:03 AM [facility] LABORATORYSpecimen (Source)Anatomical Location / LateralityCollection Method / VolumeCollection TimeReceived Time BloodBLOOD SPECIMEN / UnknownVenipuncture / Qecgbwr4708/13/2025 9:30 AM CDT 08/13/2025 9:37 AM CDT Narrative Authorizing ProviderResult TypeResult StatusDean Harp MBBSCHEMISTRY Final ResultPerforming OrganizationAddressCity/State/ZIP CodePhone Number [facility]ORY [address] [place] [address], * (ABNORMAL) HEPATIC FUNCTION PANEL (08/13/2025 9:30 AM CDT)ComponentValueRef RangeTest MethodAnalysis TimePerformed AtPathologist SignatureALBUMIN4.14.0 - 4.9 g/dL08/13/2025 10:03 AM [facility]-C[facility]AL LABORATORY PROTEIN,TOTAL6.46.0 - 8.0 g/dL08/13/2025 10:03 AM [facility]- CENTRAL LABORATORYBILIRUBIN,TOTAL0.30.0 - 1.2 mg/dL08/13/2025 10:03 AM CDT [facility]-CENTRAL LABORATORYBILIRUBIN,DIRECT0.10.0 - 0.2 mg/dL 08/13/2025 10:03 AM [facility] LAB[facility] BILIRUBIN,INDIRECT0.20.2 - 0.8 mg/dL08/13/2025 10:03 AM [facility] LABORATORYALK GBKTXLOYSNW176(H)35 - 104 IU/L1 10:03 AM [facility] LABORATORYALT (SGPT)2110 - 35 IU/L1 10:03 AM [facility] LABORATORYAST (SGOT)2410 - 35 IU/L1 10:03 AM [facility] LABORATORYSpecimen (Source)Anatomical Location / LateralityCollection Method / VolumeCollection TimeReceived TimeBloodBLOOD SPECIMEN / UnknownVenipuncture / Aqqteyh3708/13/2025 9:30 AM CDT1 9:37 AM CDT Narrative Authorizing ProviderResult TypeResult StatusDean ROSEBSCHEMISTRY Final ResultPerforming OrganizationAddressCity/State/ZIP CodePhone Number [facility] [address] [place] [phone], * (ABNORMAL) BASIC METABOLIC PANEL (08/13/2025 9:30 AM CDT)ComponentValueRef RangeTest MethodAnalysis TimePerformed AtPathologist GeeqbuwvlVCSQQR566465 - 145 mmol/L1 10:03 AM [facility] LABORATORY POTASSIUM4.93.5 - 5.1 mmol/L1 10:03 AM [facility] CENTRAL TCABPVZILHEWHIZYYG060(H)98 - 107 mmol/L1 10:03 AM [facility] LABORATORYCO2,VUBMU2416 - 29 mmol/L1 10:03 AM [facility] LABORATORYANION GAP85 - 181 10:03 AM [facility] VMBAERFNTOFTFCBVS859(H)70 - 99 mg/dL08/13/2025 10:03 AM [facility] LABORATORYCALCIUM 10.38.8 - 10.4 mg/dL08/13/2025 10:03 AM CDTALL[facility] LABOR[facility]-CENTRAL LABORATORYComment: Reference ranges for this test were updated on 08/20/2024 to reflect our healthy population more accurately. Reference range changes are not retroactively applied to results, but previous results using the same methodology can be interpreted in the context of the new reference range. YCB869 - 23 mg/dL08/13/2025 10:03 AM [facility]-CENTRAL LABORATORYCREATININE0.840.50 - 0.90 mg/dL08/13/2025 10:03 AM [facility]-CENTRAL LABORATORYBUN/CREAT RPUSU7299 - 10:03 AM CDT [facility] FTOQBTMWUGyJSY38(L)>90 mL/min/1.51z80408/13/2025 10:03 AM [facility] LABORATORYComment:As of 12/28/2021, eGFR is calculated by the CKD-EPI creatinine equation without race adjustment. ??eGFR can be influenced by muscle mass, exercise, and diet. ??The reported eGFR is an estimation onlyand is only applicable if the renal function is stable. Specimen (Source)Anatomical Location / LateralityCollection Method / Volume Collection TimeReceived TimeBloodBLOOD SPECIMEN / UnknownVenipuncture / Unknown 08/13/2025 9:30 AM CDT1 9:37 AM CDT Narrative Authorizing ProviderResult TypeResult StatusDean ROSEBSCHEMISTRY Final ResultPerforming OrganizationAddressCity/State/ZIP CodePhone Number [facility] [address] [address], * (ABNORMAL) XR DXA BONE DENSITY 2 SITES AXIAL (07/25/2023 2:03 PM CDT) Anatomical RegionLateralityModalitySpine, HIPS, HIPL, HIPROtherSpecimen (Source)Anatomical Location / LateralityCollection Method / VolumeCollection TimeReceived Time Impressions 07/31/2023 8:11 AM CDT Osteoporosis. RECOMMENDATIONS: The National Osteoporosis Foundation recommends pharmacologic treatment for patients with T-scores of -2.5 or less, patients with prior history of fragility fractures, or patients with 10-year probability of greater than 3% at hips or greater than 20% of suffering major osteoporotic fractures. Recommend continued optimization of calcium and vitamin D intake through dietary means and/or supplementation and regular exercise. Consider pharmacologic therapy for osteoporosis. Follow-up bone density reading in 2 years if therapy initiated to assess therapeutic efficacy. Supriya Carrera PA-C [facility] 07/31/2023 ?? Narrative 07/31/2023 8:11 AM CDT For Patients: Results are automatically released to your [facility] account once available, in compliance with federal regulations. This means that you may see your results before your provider has had a chance to review them. Please allow 2-3 business days for your provider to comment on the results. XR DXA Bone Mineral Density (BMD) EXAM LOCATION: [address] [address] PATIENT NAME: Tavo Stephens DATE OF : 1945 EXAM DATE: 07/25/2023 REQUESTING PROVIDER: Ralph Puri MD GENDER AT : female HEIGHT: 5' 3.75 (07/24/2023) WEIGHT: ??157 lb (07/24/2023) MENOPAUSAL STATUS: Postmenopausal RACE/ETHNICITY: White RISK FACTORS: Family History of Osteoporosis, Family History of Hip Fracture (parental), Smoking (prior), and White Race CURRENT MEDICATION FOR BONE LOSS: NONE INDICATION: Follow-up of existing osteopenia COMPARISON DATE(S): 2018 DXA scans are compared to prior studies for a patient only when the two (or more) studies were performed on the same scanner. It is not possible to compare data generated on one scanner to data from another because there are not standards in DXA equipment. This applies even if the two scanners are made by the same data security consultant. PROCEDURE: Dual-energy x-ray absorptiometry performed with routine technique. Reporting is completed in the form of a T-score. The T-score represents the standard deviation from peak bone mass based on young healthy adult. A Z-score is used for diagnosis in premenopausal women, and for men under the age of 50. FINDINGS: RESULT LUMBAR SPINE L1 - L2 ??BMD: 0.939 g/cm2 T-Score: - 1.9 Z-Score: - 0.3 Change from prior in 2019: ??Decrease 9.5%. RESULTS FEMUR Left femoral neck BMD: 0.682 g/cm2 T-Score: - 2.6 Z-Score: - 0.7 Change from prior in 2019: ??Decrease 5.4%. Right femoral neck BMD: 0.696 g/cm2 T-Score: - 2.5 Z-Score: - 0.6 Change from prior in 2019: ??Decrease 5.8%. Left hip BMD: 0.820 g/cm2 T-Score: - 1.5 Z-Score: + 0.2 Change from prior in 2019: ??Decrease 6.7%. Right hip BMD: 0.771 g/cm2 T-Score: - 1.9 Z-Score: - 0.2 Change from prior in 2019: ??Decrease 8.1%. WHO criteria: Normal: T-score at or above -1 SD Osteopenia: T-score between -1.1 and -2.4 SD Osteoporosis: T-score at or below -2.5 SD Authorizing ProviderResult TypeResult StatusJustin Ray Khushi MDDEXAFinal Result * ANTI HCV (12/06/2012 9:48 AM CATHETER BUILDER)ComponentValueRef RangeTest MethodAnalysis TimePerformed AtPathologist SignatureANTI HCVNon-reactiveABBOTT PROVIDENCE SACRED HEART MEDICAL CENTERpecimen (Source)Anatomical Location / LateralityCollection Method / VolumeCollection TimeReceived TimeBlood specimen (specimen)BLOOD SPECIMEN / Ubdczaz5612/06/2012 9:48 AM CST12/06/2012 9:43 AM CATHETER BUILDER Narrative Authorizing ProviderResult TypeResult StatusCandy Beckman MDSEND OUTS Final ResultPerforming OrganizationAddressCity/State/ZIP CodePhone Number [facility] INTERNAL ZIP [address] [place], [place] [address] [address] from Last 3 Months or Most Recently Relevant to Health Maintenance Insurance Advance Directives TypeDate RecordedPatient RepresentativeExplanationHealthcare Directive03/23/2017 1:26 [employer] JOAN STEPHENSHealthcare Ujszxhvit23/1/2010JUNE 2009 * Full Code (Latest Code Status on File) Date ActivatedDate InactivatedComments02/11/2025 8:47 AM02/11/2025 1:18 PMQuestion AnswerCommentsCode Status Discussion:* Unable to Assess Preferences, Provider to review later * Full Code Date ActivatedDate TfiicaluxqdIhpvxayq81/1/2024 8:11 AM07/16/2024 4:20 PMQuestion AnswerCommentsCode Status Discussion:* Unable to Assess Preferences, Provider to review later * Full Code Date ActivatedDate InactivatedComments05/18/2023 7:26 AM05/18/2023 12:30 PMQuestion AnswerCommentsCode Status Discussion:* Reviewed Preferences * Full Code Date ActivatedDate InactivatedComments04/19/2022 7:11 AM04/19/2022 12:59 PMQuestion AnswerCommentsCode Status Discussion:* Reviewed Preferences * Full Code Date ActivatedDate InactivatedComments12/08/2021 9:45 AM12/08/2021 2:20 PMQuestion AnswerCommentsCode Status Discussion:* Discussed Care Teams Team MemberRelationshipSpecialty[place] [address] [facility] [place] [address] PCP - Generalmi Practice05/17/23 Trudy Witt Dermatology12/06/12 Supriya Romero PA Physician's AssistantCardiovascular Disease04/12/17 Cari Glasgow MD [address] [place] [address] Consulting PhysicianNeurology04/16/19 Jeremy Yeung DO [address] [facility] [address] [place] [address] Consulting PhysicianPulmonary Medicine04/16/19 Rafaela Valles MBBS [address] [place] [address] Consulting PhysicianCardiovascular Disease01/02/24
[2025-10-05 03:51] LABS: Lactate Sepsis w/Reflex* 0.6 mmol/L (0.5-1.9)
[2025-10-05 03:55] LABS: Hematocrit* 35.8 % (33.0-51.0); Hemoglobin* 12.0 gm/dL (12.0-16.0); Immature Granulocytes Abs Auto 0.01 K/uL (0.00-0.30); Immature Granulocytes Pct Auto 0.1 %; Mean Corpuscular HGB Conc 34 gm/dL (32-36); Mean Corpuscular Hemoglobin 31 pg (26-34); Mean Corpuscular Volume 93 fL (80-100); RDW Coefficient of Variation % 13.1 % (11.5-15.5); Red Blood Count* 3.85 m/uL (4.00-5.20); White Blood Count* 8.29 K/uL (4.50-11.00)
[2025-10-05 03:56] LABS: Lymphocytes Absolute Auto 1.10 K/uL (0.90-2.90); Slide Review Reflex No
--- NOTE | 2025-10-05 03:59 | CRLHL7_ITS ---
For Patients: As a result of the Century Cures Act, medical imaging exams and procedure reports are released immediately into your electronic medical record. You may view this report before your referring provider. If you have questions, please contact your health care provider. INDICATION: Delirium TECHNIQUE: CT head without contrast. COMPARISON: CT head 07/04/2017. FINDINGS: MASS EFFECT AND VENTRICLES: No significant midline shift. The lateral ventricles are symmetric. Basal cisterns patent. No sulcal effacement. The ventricles, cisterns, and other CSF containing spaces are symmetrically prominent secondary to diffuse parenchymal volume loss but are otherwise normal as to shape and position. BRAIN: Diffuse cerebral volume loss. Periventricular and subcortical hypodensities likely secondary to age-related microvascular ischemic changes. No acute infarct or hemorrhage. VASCULAR: No acute abnormalities of the cavernous carotids and vertebral vessels on noncontrast exam. EXTRA-AXIAL: Extra-axial spaces are normal. EXTRA-CRANIAL: No acute calvarial fractures. Sinuses and mastoids are clear. Bilateral lens replacements. Scattered areas of mild soft tissue swelling and skin thickening along the scalp. IMPRESSION: No acute intracranial abnormality. Scattered areas of soft tissue swelling and skin thickening along the scalp. Please note that all CT scans at this facility use dose modulation, iterative reconstruction, and/or weight-based dosing when appropriate to reduce radiation dose to as low as reasonably achievable. Dictated by Casie Mcadams MD @ 10/05/2025 5:23:08 AM (Electronically Signed)
--- NOTE | 2025-10-05 03:59 | CRLHL7_ITS ---
For Patients: As a result of the Century Cures Act, medical imaging exams and procedure reports are released immediately into your electronic medical record. You may view this report before your referring provider. If you have questions, please contact your health care provider. INDICATION: Cough, dyspnea TECHNIQUE: Chest 2 views. COMPARISON: CT chest 08/28/2012 FINDINGS: Cardiovascular and mediastinum: Heart size is normal. Unremarkable mediastinum. Lungs and pleural spaces: Lungs are clear. No pneumothorax or pleural effusion. Bones and soft tissues: No significant findings. IMPRESSION: No acute findings. Dictated by Casie Mcadams MD @ 10/05/2025 5:24:03 AM (Electronically Signed)
[2025-10-05 04:09] LABS: Albumin* 3.9 g/dL (3.3-5.0); Chloride* 104 mmol/L (96-114); Potassium* 3.9 mmol/L (3.6-5.1); Sodium* 135 mmol/L (135-149)
[2025-10-05 04:12] LABS: Alanine Aminotransferase* 34 U/L (4-35); Aspartate Amino Transferase* 43 U/L (12-35); Blood Urea Nitrogen* 11 mg/dL (7-30); Creatinine* 0.8 mg/dL (0.5-1.5); Est. Creatinine Clearance* 39.39; Estimated Glomerular Filt Rate 75 ml/min
[2025-10-05 04:13] LABS: Ethanol* < 0.01 % (0.01-0.03)
[2025-10-05 04:13] LABS: Alkaline Phosphatase* 100 U/L (40-150); Anion Gap 5 mEq/L (7-15); Bilirubin Total* 0.4 mg/dL (0.1-1.5); Calcium* 9.6 mg/dL (8.4-10.6); Carbon Dioxide* 26 mmol/L (20-32); Glucose* 112 mg/dL (60-115); Total Protein* 6.4 g/dL (6.0-8.3)
[2025-10-05 04:16] LABS: PCR FLU A POSITIVE PCR FLU A (Negative); PCR FLU B Negative PCR FLU B (Negative); PCR RSV Negative PCR RSV (Negative); SARS PCR* Negative SARS-CoV-2 (Negative)
[2025-10-05 04:27] LABS: Appearance Urine Clear (Clear)
[2025-10-05 04:29] LABS: Procalcitonin* 0.06 ng/mL (<0.50)
--- NOTE | 2025-10-05 04:46 | ED.WEAKNESS ---
HPI - Weakness General Chief complaint: Weakness Stated complaint: confused Time Seen by Provider: 10/05/25 03:37 Source: patient and family Mode of arrival: ambulatory History of Present Illness HPI Narrative: Patient brought into the ED by her spouse for evaluation of confusion for the past hour. Patient awoke at 2:00 a.m. to go to the bathroom and seemed very weak, confused when tried to speak with her. He had to help her up out of the bed. She has been showing signs of illness for the past 2 days, has had a cough. It seems nonproductive, appetite has been decreased. Has not noticed any fevers. There has been no vomiting. No pertinent travel, no sick contacts. Has not tried any interventions at home to help with symptoms. Patient typically has normal cognition, but reports that she is confused, asking questions that seem out of place, does not remember specific details very well. Has not noticed any falls but she has seemed off balance for about 24 hours. Symptoms have come on gradually. No focal weakness appreciated. Patient when I ask specifically denies any complaints whatsoever, does not seem to have insight. She notes no chest pain, no cardiac changes, no GI changes. No pain in her extremities, headache or vision loss. denies prior similar episodes. He states that she has had a stroke in 2017 that led to some right hand deficits. No other deficits appreciated. She has not had any recent changes in her medications. When I ask her about her medications, she reports metoprolol and losartan, cannot remember her 3rd medication that she takes. Her medicine list from [facility] is reviewed it looks like metoprolol and losartan are correct but she also has Synthroid daily. She also has several inhalers, Nexium and several p.r.n. medications. She has a prior history of breast cancer with prior mastectomy as well as the hypertension and GERD and hypothyroidism. She is a former smoker but quit more than 20 years ago. She also reports to me that she has issues with her pancreas but is unable to recall what. It sounds like she has a history of a pancreatic cyst managed by the GI team through [facility] as well. Mini cog score was 5 less than 3 weeks ago. Last Medicare wellness note is reviewed. Related Data Home Medications ?Medication ?Instructions ?Recorded ?Confirmed albuterol sulfate 90 mcg/actuation 2 puff inhalation Q4H PRN wheezing 10/05/25 10/05/25 aerosol inhaler azelastine 137 mcg (0.1 %) nasal 2 spray intranasal BID 10/05/25 10/05/25 spray budesonide-formoterol HFA 160 2 puff inhalation BID 10/05/25 10/05/25 mcg-4.5 mcg/actuation aerosol inhaler cyclobenzaprine 10 mg tablet 10 mg PO QPM 10/05/25 10/05/25 esomeprazole magnesium 40 mg 40 mg PO DAILY 10/05/25 10/05/25 capsule,delayed release ezetimibe 10 mg tablet 10 mg PO DAILY 10/05/25 10/05/25 ipratropium 0.5 mg-albuterol 3 mg 3 ml inhalation Q6H PRN dyspnea 10/05/25 10/05/25 (2.5 mg base)/3 mL nebulization soln latanoprost 0.005 % eye drops 1 drp ophthalmic (eye) QPM 10/05/25 10/05/25 levothyroxine 75 mcg tablet 75 mcg PO QAM 10/05/25 10/05/25 losartan 50 mg tablet 75 mg PO DAILY 10/05/25 10/05/25 metoprolol tartrate 50 mg tablet mg PO 10/05/25 nystatin 100,000 unit/gram topical topical BID 10/05/25 cream ondansetron 4 mg disintegrating 4 mg PO Q8H PRN nausea/vomiting 10/05/25 10/05/25 tablet Allergies Allergy/AdvReac Type Severity Reaction Status Date / Time hydromorphone (From Dilaudid) Allergy Mild hallucinati Verified 10/05/25 04:02 ons [id number] Reductase Allergy Mild Muscle Pain Verified 10/05/25 04:02 Inhibitor diphenhydramine (From Allergy Rash Verified 10/05/25 07:26 Benadryl) [facility] Social History Smoking Status: Never smoker Do you use any of these nicotine containing products: None Second hand tobacco smoke exposure: No How often do you have a drink containing alcohol: never AUDIT-C Alcohol total score: 0 Non-prescribed substance use: denies use Exam Const: Vital Signs, click to edit/add: Vital Signs - 24 hr 10/05/25 03:29 10/05/25 04:06 10/05/25 04:07 Temperature 100.9 F H Pulse Rate 92 93 Pulse Rate [Pulse Oximeter] 83 Respiratory Rate 18 Blood Pressure 147/83 H Blood Pressure [Ri ght Upper Arm] 163/71 H Pulse Oximetry 94 87 L 86 L Oxygen Delivery Me thod Room Air Room Air Room Air Oxygen Flow Rate 10/05/25 04:22 10/05/25 04:33 10/05/25 04:51 Temperature Pulse Rate 93 91 Pulse Rate [Pulse Oximeter] Respiratory Rate Blood Pressure Blood Pressure [Ri ght Upper Arm] Pulse Oximetry 90 87 L 89 Oxygen Delivery Me thod Oxygen Flow Rate 10/05/25 05:00 10/05/25 05:00 10/05/25 05:03 Temperature Pulse Rate 91 93 Pulse Rate [Pulse Oximeter] Respiratory Rate Blood Pressure 156/65 H Blood Pressure [Ri ght Upper Arm] Pulse Oximetry 94 91 88 Oxygen Delivery Me thod Nasal Cannula Oxygen Flow Rate 2 10/05/25 05:15 10/05/25 05:30 10/05/25 05:31 Temperature Pulse Rate 92 89 89 Pulse Rate [Pulse Oximeter] Respiratory Rate Blood Pressure 140/85 H Blood Pressure [Ri ght Upper Arm] Pulse Oximetry 95 95 93 Oxygen Delivery Me thod Nasal Cannula Oxygen Flow Rate 2 10/05/25 05:45 10/05/25 06:00 Temperature Pulse Rate 84 90 Pulse Rate [Pulse Oximeter] Respiratory Rate Blood Pressure Blood Pressure [Ri ght Upper Arm] Pulse Oximetry 93 93 Oxygen Delivery Me thod Oxygen Flow Rate Documenting provider has reviewed patient's vital signs: yes Common normals: alert Other: Appears mildly disheveled. Corners of her lips are cracked, lips are dry. Appears slightly pale. Attempts to answer questions but it is clear that she does not have much insight. There is no slurring or focal neurological deficits immediately seen. HENMT: Common normals: normocephalic, moist oral mucous membranes, oropharynx normal and dentition normal Head and scalp: normocephalic Face and sinus: normal facial exam Mouth: oral and palatal mucosa normal Eye: Common normals: PERRL, EOMs intact bilaterally and conjunctivae normal General eye: normal appearance of both eyes Conjunctiva: conjunctiva(e) normal Pupil: PERRL Neck & C-Spine: Common normals: full ROM and no lymphadenopathy General: normal visual inspection Resp: Common normals: normal respiratory effort Other: Coarse upper airway sounds and cough noted. No wheezing or crackle. Cardio: Common normals: regular rate, regular rhythm, S1 normal heart sound, S2 normal heart sound and no murmurs Rate: regular rate Rhythm: regular rhythm Heart sounds: S1 normal and S2 normal GI: Common normals: Normal to inspection, nondistended, normoactive bowel sounds present, soft to palpation, non-tender, no hepatosplenomegaly and no masses Palpation: soft and no hepatosplenomegaly Extremity: Common normals: normal to inspection and normal capillary refill Neuro: Common normals: CN's II-XII intact bilaterally and moves all extremities Sensorium/orientation: alert and orientation impaired Cranial nerves: CN normal except as noted Speech: speech normal Motor exam: strength 5/5 throughout Other: No focal deficits to extremity exam but gait not assessed. Does seem generally weak. Has difficulty holding herself up for respiratory exam. Psych: Attitude: calm Activity/motor behavior: appropriate eye contact Insight: limited Judgement: fair Skin: Common normals: no rashes or lesions noted General skin exam: no rashes or lesions noted Course Course ED Course: 80-year-old female with coarse cough, confusion most likely consistent with delirium. Suspect underlying influenza, pneumonia, bladder infection or other metabolic etiology. Prior history of stroke, cannot exclude acute CVA. Also concern for underlying sepsis, ill dehydration, electrolyte abnormality, cardiac process amongst many other things that could be causing her weakness today. Will obtain viral swabs, chest x-ray, head CT, typical labs. Place peripheral IV, monitor oximetry. Will give 500 mL normal saline bolus due to the fact that she does appear mildly dehydrated. Update: Initial O2 sats in triage were okay but patient's O2 sats when she settled into her room began to drop, noted to be 87 at the time of my exam. Will place on supplemental oxygen. Will likely need admission. Reevaluation(s) Time of Reevaluation #1: 05:35 Reevaluation #1: Counseled patient and spouse on findings. O2 sats are better on 2 L nasal cannula. Chest x-ray does not show any focal infiltrates, head CT appears stable. Patient is still very weak in very confused. Still not demonstrating any focal weakness. Was asleep at the time of my 2nd assessment but arouses easily. Discussed delirium, I suspect this is induced by her illness but cannot tell for sure. We should consider doing an MRI if her symptoms do not improve as expected. I am not seeing any signs of a bacterial etiology. Lactate was not elevated. With the hypoxia, findings clinically consistent with pneumonia and history of smoking, I do recommend starting Rocephin, azithromycin, prednisone and will give DuoNeb. Tylenol given. Will need PT consult for generalized weakness but I think that this will improve as we treat her underlying respiratory and viral condition. Will need hospital admission. Update: Accepted for admission by hospitalist team. They asked that we add in a venous blood gas which is done per the request. Patient was agreeable to admission. Vital Signs Vital signs: Initial Vital Signs Temperature 100.9 F H 10/05/25 03:29 Temperature Source Oral 10/05/25 03:29 Pulse Rate 83 10/05/25 03:29 Pulse Rhythm Regular 10/05/25 03:29 Pulse Strength 3+ Normal 10/05/25 03:29 Respiratory Rate 18 10/05/25 03:29 Blood Pressure 163/71 H 10/05/25 03:29 Blood Pressure Mean 101 10/05/25 03:29 Blood Pressure Position Sitting 10/05/25 03:29 Pulse Oximetry 94 10/05/25 03:29 Oxygen Delivery Method Room Air 10/05/25 03:29 Vital Signs Temperature 100.9 F H 10/05/25 03:29 Pulse Rate 83 10/05/25 03:29 Respiratory Rate 18 10/05/25 03:29 Blood Pressure 163/71 H 10/05/25 03:29 Pulse Oximetry 94 10/05/25 03:29 Oxygen Delivery Method Room Air 10/05/25 03:29 Temperature 98.3 F 10/05/25 06:28 Pulse Rate 91 10/05/25 06:28 Respiratory Rate 20 10/05/25 06:28 Blood Pressure 126/56 L 10/05/25 06:28 Pulse Oximetry 91 10/05/25 06:43 Oxygen Delivery Method Nasal Cannula 10/05/25 06:28 Oxygen Flow Rate 2 10/05/25 06:28 Medications Administered Medications: Generic Name Dose Route Start Last Admin Trade Name Freq PRN Reason Stop Dose Admin Benzonatate 200 mg 10/05/25 09:00 10/05/25 08:08 Benzonatate 100 Mg Capsule PO 200 mg TID FINN Administration Ezetimibe 10 mg 10/05/25 09:00 10/05/25 08:09 Ezetimibe 10 Mg Tablet PO 10 mg DAILY FINN Administration Guaifenesin 1,200 mg 10/05/25 09:00 10/05/25 08:07 Guaifenesin 600 Mg Tab.Er.12h PO 1,200 mg BID FINN Administration Azithromycin 500 mg/ Sodium 255 mls @ 255 mls/hr 10/05/25 08:00 10/05/25 08:07 Chloride IVPB 10/05/25 08:59 255 mls/hr ONCE ONE Administration Levothyroxine Sodium 75 mcg 10/05/25 09:00 10/05/25 08:08 Levothyroxine 75 Mcg Tablet PO 75 mcg QAM FINN Administration Losartan Potassium 75 mg 10/05/25 09:00 10/05/25 08:09 Losartan Potassium 50 Mg Tablet PO 75 mg DAILY FINN Administration Metoprolol Tartrate 25 mg 10/05/25 09:00 10/05/25 08:09 Metoprolol Tartrate 50 Mg Tablet PO 25 mg DAILY FINN Administration Budesonide- 0 puff 10/05/25 09:00 10/05/25 08:10 Formoterol 160-4.5 IH Not Given Mcg/Actuation Hfa BID [facility] Aerosol Inhaler Omeprazole 40 mg 10/05/25 09:00 10/05/25 08:08 [address]epraz[address] PO 40 mg DAILY FINN Administration Sodium Chloride 5 ml 10/05/25 09:00 10/05/25 08:09 Sodium Chloride 0.9 % (Flush) 10 Ml Syringe IVF 5 ml BID FINN Administration Discontinued Medications Generic Name Dose Route Start Last Admin Trade Name Freq PRN Reason Stop Dose Admin Acetaminophen 1,000 mg 10/05/25 04:41 10/05/25 05:08 Acetaminophen 500 Mg Tablet PO 10/05/25 04:42 1,000 mg ONCE ONE Administration Albuterol/Ipratropium 1 neb 10/05/25 05:36 10/05/25 05:58 Iprat-Albut 0.5-2.5 Mg/3 Ml Neb IH 10/05/25 05:37 1 neb ONCE ONE Administration Sodium Chloride 500 mls @ 500 mls/hr 10/05/25 04:41 10/05/25 06:00 0.9 % Sodium Chloride 500 Ml IV 10/05/25 05:40 Infused .Q1H FINN Infusion Azithromycin 500 mg/ Sodium 255 mls @ 255 mls/hr 10/05/25 05:36 10/05/25 08:12 Chloride IVPB 10/05/25 06:35 Not Given ONCE ONE Ceftriaxone Sodium 1 gm/ 100 mls @ 200 mls/hr 10/05/25 05:36 10/05/25 05:59 Sodium Chloride IVPB 10/05/25 06:05 200 mls/hr ONCE ONE Administration Prednisone 40 mg 10/05/25 05:36 10/05/25 05:58 Prednisone 20 Mg Tablet PO 10/05/25 05:37 40 mg ONCE ONE Administration MDM - Weakness Medical Records Attestation: I reviewed the patient's medical records. Lab Data Attestation: I reviewed the patient's lab results. Lab results narrative: Positive for influenza A. Remainder of labs show elevation of CRP, normal lipase, negative alcohol level, negative cardiac markers. Other than some mild dehydration and concentrated urine, no signs of infection. Labs: Lab Results 10/05/25 10/05/25 10/05/25 Range/Units 03:38 03:40 03:53 WBC 8.29 (4.50-11.00) K/uL RBC 3.85 L (4.00-5.20) m/uL Hgb 12.0 (12.0-16.0) gm/dL Hct 35.8 (33.0-51.0) % MCV 93 (80-100) fL MCH 31 (26-34) pg MCHC 34 (32-36) gm/dL RDW Coeff of Ata 13.1 (11.5-15.5) % Plt Count 212 (140-440) K/uL Neut % (Auto) 76.4 H (42.0-72.0) % Lymph % (Auto) 12.9 L (20-44) % Dickens % (Auto) 8.8 (0.0-11.0) % Eos % (Auto) 1.6 (0.0-7.0) % Baso % (Auto) 0.2 (0.0-3.0) % Neut # (Auto) 6.30 (1.7-7.0) K/uL Lymph # (Auto) 1.10 (0.90-2.90) K/uL Dickens # (Auto) 0.70 (0.00-0.90) K/UL Eos # (Auto) 0.13 (0.00-0.50) K/uL Baso # (Auto) 0.02 (0.00-0.30) K/uL Abs Immat Gran (auto) 0.01 (0.00-0.30) K/uL Imm/Tot Granulo (auto) 0.1 % VBG pH 7.414 (7.32-7.43) VBG pCO2 42 (40-50) mmHG VBG pO2 < 30.1 (25-47) mmHG VBG HCO3 27 (21-28) mmol/L Sodium 135 (135-149) mmol/L Potassium 3.9 (3.6-5.1) mmol/L Chloride 104 (96-114) mmol/L Carbon Dioxide 26 (20-32) mmol/L Anion Gap 5 L (7-15) mEq/L BUN 11 (7-30) mg/dL Creatinine 0.8 (0.5-1.5) mg/dL Estimated Creat Clear 39.39 Estimated GFR 75 ml/min Glucose 112 (60-115) mg/dL Lactate 0.6 (0.5-1.9) mmol/L Calcium 9.6 (8.4-10.6) mg/dL Total Bilirubin 0.4 (0.1-1.5) mg/dL AST 43 H (12-35) U/L ALT 34 (4-35) U/L Alkaline Phosphatase 100 (40-150) U/L POC Troponin I High Sensi 11.2 (2.9-13.0) pg/mL C-Reactive Protein 4.4 H (0.5-1.0) mg/dL Total Protein 6.4 (6.0-8.3) g/dL Albumin 3.9 (3.3-5.0) g/dL Lipase (23-300) U/L Procalcitonin 0.06 (<0.50) ng/mL Urine Color (Yellow) Urine Appearance (Clear) Urine pH (5.0-8.5) Ur Specific Kendall (1.000-1.030) Urine Protein (Negative) Urine Glucose (UA) (Negative) Urine Ketones (Negative) Urine Blood (Negative) Urine Nitrite (Negative) Urine Bilirubin (Negative) Urine Urobilinogen (0.2-1.0) Ur Leukocyte Esterase (Negative) Urine RBC (0-2) Urine WBC (0-5) Ur Squamous Epith Cells (None-Few) Urine Bacteria (None) Ethyl Alcohol (0.01-0.03) % SARS-CoV-2 (PCR) Negative SARS-CoV-2 (Negative) Influenza Type A (PCR) POSITIVE PCR FLU A A (Negative) Influenza Type B (PCR) Negative PCR FLU B (Negative) RSV (PCR) Negative PCR RSV (Negative) Lab Acknowledgement 10/05/25 10/05/25 10/05/25 Range/Units 04:03 04:04 04:18 WBC (4.50-11.00) K/uL RBC (4.00-5.20) m/uL Hgb (12.0-16.0) gm/dL Hct (33.0-51.0) % MCV (80-100) fL MCH (26-34) pg MCHC (32-36) gm/dL RDW Coeff of Ata (11.5-15.5) % Plt Count (140-440) K/uL Neut % (Auto) (42.0-72.0) % Lymph % (Auto) (20-44) % Dickens % (Auto) (0.0-11.0) % Eos % (Auto) (0.0-7.0) % Baso % (Auto) (0.0-3.0) % Neut # (Auto) (1.7-7.0) K/uL Lymph # (Auto) (0.90-2.90) K/uL Dickens # (Auto) (0.00-0.90) K/UL Eos # (Auto) (0.00-0.50) K/uL Baso # (Auto) (0.00-0.30) K/uL Abs Immat Gran (auto) (0.00-0.30) K/uL Imm/Tot Granulo (auto) % VBG pH (7.32-7.43) VBG pCO2 (40-50) mmHG VBG pO2 (25-47) mmHG VBG HCO3 (21-28) mmol/L Sodium (135-149) mmol/L Potassium (3.6-5.1) mmol/L Chloride (96-114) mmol/L Carbon Dioxide (20-32) mmol/L Anion Gap (7-15) mEq/L BUN (7-30) mg/dL Creatinine (0.5-1.5) mg/dL Estimated Creat Clear Estimated GFR ml/min Glucose (60-115) mg/dL Lactate (0.5-1.9) mmol/L Calcium (8.4-10.6) mg/dL Total Bilirubin (0.1-1.5) mg/dL AST (12-35) U/L ALT (4-35) U/L Alkaline Phosphatase (40-150) U/L POC Troponin I High Sensi (2.9-13.0) pg/mL C-Reactive Protein (0.5-1.0) mg/dL Total Protein (6.0-8.3) g/dL Albumin (3.3-5.0) g/dL Lipase 163 (23-300) U/L Procalcitonin (<0.50) ng/mL Urine Color (Yellow) Urine Appearance (Clear) Urine pH (5.0-8.5) Ur Specific Kendall (1.000-1.030) Urine Protein (Negative) Urine Glucose (UA) (Negative) Urine Ketones (Negative) Urine Blood (Negative) Urine Nitrite (Negative) Urine Bilirubin (Negative) Urine Urobilinogen (0.2-1.0) Ur Leukocyte Esterase (Negative) Urine RBC (0-2) Urine WBC (0-5) Ur Squamous Epith Cells (None-Few) Urine Bacteria (None) Ethyl Alcohol < 0.01 (0.01-0.03) % SARS-CoV-2 (PCR) (Negative) Influenza Type A (PCR) (Negative) Influenza Type B (PCR) (Negative) RSV (PCR) (Negative) Lab Acknowledgement Test Added 10/05/25 10/05/25 Range/Units 04:24 05:43 WBC (4.50-11.00) K/uL RBC (4.00-5.20) m/uL Hgb (12.0-16.0) gm/dL Hct (33.0-51.0) % MCV (80-100) fL MCH (26-34) pg MCHC (32-36) gm/dL RDW Coeff of Ata (11.5-15.5) % Plt Count (140-440) K/uL Neut % (Auto) (42.0-72.0) % Lymph % (Auto) (20-44) % Dickens % (Auto) (0.0-11.0) % Eos % (Auto) (0.0-7.0) % Baso % (Auto) (0.0-3.0) % Neut # (Auto) (1.7-7.0) K/uL Lymph # (Auto) (0.90-2.90) K/uL Dickens # (Auto) (0.00-0.90) K/UL Eos # (Auto) (0.00-0.50) K/uL Baso # (Auto) (0.00-0.30) K/uL Abs Immat Gran (auto) (0.00-0.30) K/uL Imm/Tot Granulo (auto) % VBG pH 7.414 (7.32-7.43) VBG pCO2 42 (40-50) mmHG VBG pO2 < 30.1 (25-47) mmHG VBG HCO3 27 (21-28) mmol/L Sodium (135-149) mmol/L Potassium (3.6-5.1) mmol/L Chloride (96-114) mmol/L Carbon Dioxide (20-32) mmol/L Anion Gap (7-15) mEq/L BUN (7-30) mg/dL Creatinine (0.5-1.5) mg/dL Estimated Creat Clear Estimated GFR ml/min Glucose (60-115) mg/dL Lactate (0.5-1.9) mmol/L Calcium (8.4-10.6) mg/dL Total Bilirubin (0.1-1.5) mg/dL AST (12-35) U/L ALT (4-35) U/L Alkaline Phosphatase (40-150) U/L POC Troponin I High Sensi (2.9-13.0) pg/mL C-Reactive Protein (0.5-1.0) mg/dL Total Protein (6.0-8.3) g/dL Albumin (3.3-5.0) g/dL Lipase (23-300) U/L Procalcitonin (<0.50) ng/mL Urine Color Yellow (Yellow) Urine Appearance Clear (Clear) Urine pH 6.5 (5.0-8.5) Ur Specific Kendall 1.020 (1.000-1.030) Urine Protein Negative (Negative) Urine Glucose (UA) Negative (Negative) Urine Ketones Negative (Negative) Urine Blood Trace-intact A (Negative) Urine Nitrite Negative (Negative) Urine Bilirubin Negative (Negative) Urine Urobilinogen 0.2 (0.2-1.0) Ur Leukocyte Esterase Negative (Negative) Urine RBC 0-2 (0-2) Urine WBC 0-2 (0-5) Ur Squamous Epith Cells None (None-Few) Urine Bacteria None (None) Ethyl Alcohol (0.01-0.03) % SARS-CoV-2 (PCR) (Negative) Influenza Type A (PCR) (Negative) Influenza Type B (PCR) (Negative) RSV (PCR) (Negative) Lab Acknowledgement Test Added Imaging Data Chest x-ray: Attestation: I have reviewed the pertinent imaging results. My impression: Normal chest x-ray. No signs of infiltrate, CHF or pleural effusion Radiologist's impression: FINDINGS: Cardiovascular and mediastinum: Heart size is normal. Unremarkable mediastinum. Lungs and pleural spaces: Lungs are clear. No pneumothorax or pleural effusion. Bones and soft tissues: No significant findings. IMPRESSION: No acute findings. Dictated by Casie Mcadams MD @ 10/05/2025 5:24:[address] scan - head: Attestation: I have reviewed the pertinent imaging results. My impression: Benign and chronic appearing calcifications but no signs of acute hemorrhage, mass or other abnormality Radiologist's impression: IMPRESSION: No acute intracranial abnormality. Scattered areas of soft tissue swelling and skin thickening along the scalp. Please note that all CT scans at this facility use dose modulation, iterative reconstruction, and/or weight-based dosing when appropriate to reduce radiation dose to as low as reasonably achievable. Dictated by Casie Mcadams MD @ 10/05/2025 5:23:08 AM ECG Data Attestation: I personally reviewed and interpreted this ECG as follows: Prior ECG tracings: not available for review Interpretation: Sinus rhythm with a rate of 93. Low bit of early repolarization most prominent in V1 and V2, otherwise no findings consistent with acute ischemia. Intervals and axis are otherwise normal. Borderline for LVH criteria. Discharge Plan Discharge Clinical Impression: Acute delirium, Acute hypoxic respiratory failure, Influenza A Patient Disposition: Admitted As Inpatient Procedures ABG Interpretation ABG Results: 10/05/25 10/05/25 03:53 05:43 VBG pH 7.414 7.414 VBG pCO2 42 42 VBG pO2 < 30.1 < 30.1 VBG HCO3 27 27
[2025-10-05] MEDS: 0.9 % SODIUM CHLORIDE 500 ML 500 ML IV (05:07)
[2025-10-05] MEDS: ACETAMINOPHEN 500 MG TABLET 1000 MG PO (05:08)
[2025-10-05 05:52] LABS: HCO3 VBG 27 mmol/L (21-28); PCO2 VBG 42 mmHG (40-50); PO2 VBG < 30.1 mmHG (25-47); pH VBG 7.414 (7.32-7.43)
[2025-10-05] MEDS: IPRAT-ALBUT 0.5-2.5 MG/3 ML NEB 1 NEB IH ×3 (05:58→18:20)
[2025-10-05] MEDS: cefTRIAXone 1 GM in 0.9 % SODIUM CHLORIDE Mini-bag 100 ML IVPB (05:59)
--- NOTE | 2025-10-05 06:27 | W.PM.THH&P_ITS ---
Telehealth- H&P: [facility] History of Present Illness Time Seen by Provider: 06:26 Date Seen: 10/05/25 Chief complaint: confused Narrative: Tavo Stephens is seen as an Interactive Telehealth visit. Tavo Stephens is a 80 year old with PMH HTN, HLP, hypothyroid male who is admitted for influenza A 3 days ago. Review of Systems Narrative: A complete review of systems was performed. Pertinent positives and negatives are in the HPI PFSH PFS Social History Smoking Status: Never smoker Do you use any of these nicotine containing products: None Second hand tobacco smoke exposure: No How often do you have a drink containing alcohol: never AUDIT-C Alcohol total score: 0 Non-prescribed substance use: denies use Meds Home Medications and Allergies Home Medications ?Medication ?Instructions ?Recorded ?Confirmed ?Type albuterol sulfate 90 mcg/actuation 2 puff inhalation Q 4H PRN wheezing 10/05/25 10/05/25 History aerosol inhaler azelastine 137 mcg (0.1 %) nasal 2 spray intranasal BI D 10/05/25 10/05/25 History spray budesonide-formoterol HFA 160 2 puff inhalation BID 10/05/25 History mcg-4.5 mcg/actuation aerosol inhaler cyclobenzaprine 10 mg tablet 10 mg PO QPM 10/05/25 History esomeprazole magnesium 40 mg 40 mg PO DAILY 10/05/25 1 12/06/24 History capsule,delayed release ezetimibe 10 mg tablet 10 mg PO DAILY 10/05/2509/16 History ipratropium 0.5 mg-albuterol 3 mg 3 ml inhalation Q6H PRN dyspnea 10/05/25 10/05/25 History (2.5 mg base)/3 mL nebulization soln latanoprost 0.005 % eye drops 1 drp ophthalmic (eye) Q PM 10/05/25 10/05/25 History levothyroxine 75 mcg tablet 75 mcg PO QAM 10/05/25 History losartan 50 mg tablet 75 mg PO DAILY 10/05/2509/16 History metoprolol tartrate 50 mg tablet mg PO 10/05/25 Histo ry nystatin 100,000 unit/gram topical topical BID 5 History cream ondansetron 4 mg disintegrating 4 mg PO Q8H PRN nausea /vomiting 10/05/25 10/05/25 History tablet Allergies Allergy/AdvReac Type Severity Reaction Status Date / Time hydromorphone (From Dilaudid) Allergy Mild hallucinati Verified 10/05/25 04:02 ons [id number] Reductase Allergy Mild Muscle Pain Verified 10/05/25 04:02 Inhibitor Exam Narrative Exam Narrative: Physical Exam GENERAL: ?vital signs reviewed, well developed and nourished, in no distress HEENT: pupils are equal round and reactive to light, extraocular movements are grossly within normal limits and oral mucosa is moist. NECK: Supple without lymphadenopathy or thyromegaly according to nursing staff examination observation HEART: Regular rate and rhythm without any rubs, murmurs, or gallops. LUNGS: Clear to auscultation bilaterally with good air movement throughout ABDOMEN: Observation from nurse assisted exam, abdomen appears soft, nontender, and nondistended with Positive bowel sounds noted. EXTREMITIES: Strength and sensation is observed to be grossly within normal li mits in the upper and lower extremities.? No focal strength deficit is observed. SKIN:? Observed warm and dry with color normal Const Vital Signs, click to edit/add: Vital Signs - 24 hr 10/05/25 03:29 10/05/25 04:06 10/05/25 04:07 Temperature 100.9 F H Pulse Rate 92 93 Pulse Rate [Pulse Oximeter] 83 Respiratory Rate 18 Blood Pressure 147/83 H Blood Pressure [Right Upper Arm] 163/71 H Pulse Oximetry 94 87 L 86 L Oxygen Delivery Method Room Air Room Air Room Air Oxygen Flow Rate 10/05/25 04:22 10/05/25 04:33 10/05/25 04:51 Temperature Pulse Rate 93 91 Pulse Rate [Pulse Oximeter] Respiratory Rate Blood Pressure Blood Pressure [Right Upper Arm] Pulse Oximetry 90 87 L 89 Oxygen Delivery Method Oxygen Flow Rate 10/05/25 05:00 10/05/25 05:00 10/05/25 05:03 Temperature Pulse Rate 91 93 Pulse Rate [Pulse Oximeter] Respiratory Rate Blood Pressure 156/65 H Blood Pressure [Right Upper Arm] Pulse Oximetry 94 91 88 Oxygen Delivery Method Nasal Cannula Oxygen Flow Rate 2 10/05/25 05:15 10/05/25 05:30 10/05/25 05:31 Temperature Pulse Rate 92 89 89 Pulse Rate [Pulse Oximeter] Respiratory Rate Blood Pressure 140/85 H Blood Pressure [Right Upper Arm] Pulse Oximetry 95 95 93 Oxygen Delivery Method Nasal Cannula Oxygen Flow Rate 2 10/05/25 05:45 10/05/25 06:00 Temperature Pulse Rate 84 90 Pulse Rate [Pulse Oximeter] Respiratory Rate Blood Pressure Blood Pressure [Right Upper Arm] Pulse Oximetry 93 93 Oxygen Delivery Method Oxygen Flow Rate Other: GEN: awake, alert, oriented, NAD HEENT: NC/AT, EOMI Neck: supple without lymphadenopathy according to nurse assisted exam CVS: +s1/s2, RRR without murmurs/rubs/gallops LUNGS: CTAB, rhonchi ABD: soft, NT/ND, +BS, no rebound or guarding or peritoneal signs on nurse assisted exam EXT: warm, well perfused, no edema NEURO: no focal deficits, moves all 4 extremities, answers questions appropriately PSYCH: affect normal SKIN: no rashes seen Hospitalist - H&P: Result Labs Labs: Short CBC 10/05/25 Range/Units 03:53 WBC 8.29 (4.50-11.00) K/uL Hgb 12.0 (12.0-16.0) gm/dL Hct 35.8 (33.0-51.0) % Plt Count 212 (140-440) K/uL BMP 10/05/25 03:53 Sodium 135 Potassium 3.9 Chloride 104 Carbon Dioxide 26 BUN 11 Creatinine 0.8 Glucose 112 Calcium 9.6 Liver Function 10/05/25 Range/Units 03:53 Total Bilirubin 0.4 (0.1-1.5) mg/dL AST 43 H (12-35) U/L ALT 34 (4-35) U/L Alkaline Phosphatase 100 (40-150) U/L Albumin 3.9 (3.3-5.0) g/dL Urine 10/05/25 Range/Units 04:24 Urine Color Yellow (Yellow) Urine Appearance Clear (Clear) Urine pH 6.5 (5.0-8.5) Ur Specific [place] 1.020 (1.000-1.030) Urine Protein Negative (Negative) Urine Glucose (UA) Negative (Negative) Assessment and Plan Assessment and plan (1) Influenza A: Status: Acute (2) Acute hypoxic respiratory failure: Status: Acute (3) Acute delirium: Status: Acute Plan Acute encephalopathy: CT head negative Metabolic from influenza Neurochecks improving Acute hypoxic resp failure: Secondary to influenza A and asthma exacerbation wean as tolerated duonebs, prednisone, magnesium tessalon perles, mucinex Hypertension: Continue losartan and metoprolol GERD: Continue medication Hypothyroidism: Continued home medication weakness: PT Telehealth Visit: Today's history and physical is via interactive telehealth visit by . The patient is located [place]. Physician is located at [facility]. Nursing staff assisted in the patient's exam. Visit being done today meets criteria for a telehealth visit and the patient or patient's guardian/parent is aware the visit is a telehealth visit. Camera start time: 626AM SHIPPING AND RECEIVING SUPERVISOR Camera stop time: 645AM SHIPPING AND RECEIVING SUPERVISOR Total Time Spent Total Time Spent: 41 Telehealth: Statement Statement Telehealth Visit: Today's History and Physical is provided via interactive telehealth by Yvrose Michaud DO.? Patient is located at [facility].? Provider is located at [facility].? Nursing staff assisted with the patient's exam. The visit being done today meets criteria for a telehealth visit and the patient or patient?s parent/guardian is aware the visit is a telehealth visit.
[2025-10-05 07:11] LABS: HCO3 VBG 27 mmol/L (21-28); PCO2 VBG 42 mmHG (40-50); PO2 VBG < 30.1 mmHG (25-47); pH VBG 7.414 (7.32-7.43)
--- NOTE | 2025-10-05 07:52 | PC.NURSE ---
Shift note ([id number]): Patient admitted from ED at 0620. Pt arrived on?ED?bed.?Accompanied by ?Evgeny ?Dmitri?.?Pt pleasant and alert with?occasional?confusion?which has improved per .?Denied pain.?Transferred well to bedside commode?with?assist?of one.?Benadryl allergy added to chart per Pt and ?s report of?rash reaction. Sandee?updated. Per Dr Ramon ok for?current?Azelastine orders.?
[2025-10-05] MEDS: guaiFENesin 600 MG TAB.ER.12H 1200 MG PO ×2 (08:07→20:29)
[2025-10-05] MEDS: AZITHROMYCIN 500 MG in 0.9 % SODIUM CHLORIDE 250 ml 250 ML 255 MG IVPB (08:07)
[2025-10-05] MEDS: LEVOTHYROXINE 75 MCG TABLET PO (08:08)
[2025-10-05] MEDS: OMEPRAZOLE 20 MG CAPSULE DR 40 MG PO (08:08)
[2025-10-05] MEDS: METOPROLOL TARTRATE 50 MG TABLET 25 MG PO (08:09)
[2025-10-05] MEDS: SODIUM CHLORIDE 0.9 % (FLUSH) 10 ML SYRINGE 5 ML IVF ×2 (08:09→20:33)
[2025-10-05] MEDS: EZETIMIBE 10 MG TABLET PO (08:09)
[2025-10-05] MEDS: LOSARTAN POTASSIUM 50 MG TABLET 75 MG PO (08:09)
[2025-10-05] MEDS: MAGNESIUM IV 2 GM/50 ML PIGGYBACK IVPB (09:27)
--- NOTE | 2025-10-05 12:50 | RESP.RT ---
Patient sitting up in bed, on room air, SaO2 91%, breathing regular/easy, 20/minute. BBS with fine crackles through out lung rizvi and end expiratory rattle. BBS clears with cough that changes sounds to coarse rales expiratory, then quiet. PEP with Aerobika done with patient. Patient did good return exhalation that created a loose, moist forceful productive cough. Good chest shake, had patient feel chest shake to help understand how Aerobika works. Patient impressed with the promoted cough she gets with Aerobika. RT and Nurse with encourage patient to use.
--- NOTE | 2025-10-05 13:15 | P.IMPN_ITS ---
Assessment and Plan Assessment and plan (1) Acute metabolic encephalopathy: Problem comment: -likely related to acute influenza a, hypoxia and inflammatory cascade -resolving upon arrival to the floor -continued supportive care Status: Acute (2) Acute hypoxic respiratory failure: Problem comment: -pH normal. Bicarb normal. -continue supplemental oxygen to keep sats greater than 90%. -nebs and vibratory peep per respiratory therapy -likely discharge once stable on room air Status: Acute (3) Influenza A: Problem comment: -symptoms greater than 72 hours. No Tamiflu. -continue supportive care Status: Acute (4) Monoclonal paraproteinemia: Status: Acute (5) Moderate persistent asthma: Problem comment: continue budesonide/formoterol albuterol prn appreciate RT input Status: Acute (6) Hypertension: Problem comment: continue dual therapy with losartan, metoprolol Status: Acute (7) Hypothyroidism: Problem comment: continue home synthroid dose Status: Acute Subjective Date Seen: 10/05/25 Interval history: Daily Progress Note - Hospital Medicine Day #: 1 CC: Brain fog, positive influenza a 24 HOUR UPDATE: Already improving as it relates to mental status. Patient remains on 2 L to keep her sats greater than 50%. Notable Labs, Micro, Rads, Interventions: All admission labs and imaging have been reviewed. Afebrile. Blood pressure 126/56. Pulse 70s to 90s. Respiratory rate 20. Pulse ox 91% on 2 L. Weight 60.3 kilos No current microbiology studies. EKG reviewed. Chest x-ray reviewed. Objective: Looks stated age. Awake, alert. It would appear her encephalopathic presentation has already much resolved. Vitals: see above Lungs: Upper airway congestion. Bilateral crackles. No wheezes. Cardiac: S1S2. Disposition/Potential discharge - Likely home tomorrow with Today I spent 50 minutes seeing the patient, reviewing Expanse and EPIC notes/diagnostics, discussing the care plan with our care time that includes social work, PT/OT, pharmacy, RT, intermediate and documenting my impressions and plan in the medical record. Exam Const: Vital Signs, click to edit/add: Vital Signs - 24 hr 10/05/25 03:29 10/05/25 04:06 10/05/25 04:07 Temperature 100.9 F H Pulse Rate 92 93 Pulse Rate [Pulse Oximeter] 83 Respiratory Rate 18 Blood Pressure 147/83 H Blood Pressure [Ri ght Arm] Blood Pressure [Ri ght Upper Arm] 163/71 H Pulse Oximetry 94 87 L 86 L Oxygen Delivery Me thod Room Air Room Air Room Air Oxygen Flow Rate 10/05/25 04:22 10/05/25 04:33 10/05/25 04:51 Temperature Pulse Rate 93 91 Pulse Rate [Pulse Oximeter] Respiratory Rate Blood Pressure Blood Pressure [Ri ght Arm] Blood Pressure [Ri ght Upper Arm] Pulse Oximetry 90 87 L 89 Oxygen Delivery Me thod Oxygen Flow Rate 10/05/25 05:00 10/05/25 05:00 10/05/25 05:03 Temperature Pulse Rate 91 93 Pulse Rate [Pulse Oximeter] Respiratory Rate Blood Pressure 156/65 H Blood Pressure [Ri ght Arm] Blood Pressure [Ri ght Upper Arm] Pulse Oximetry 94 91 88 Oxygen Delivery Me thod Nasal Cannula Oxygen Flow Rate 2 10/05/25 05:15 10/05/25 05:30 10/05/25 05:31 Temperature Pulse Rate 92 89 89 Pulse Rate [Pulse Oximeter] Respiratory Rate Blood Pressure 140/85 H Blood Pressure [Ri ght Arm] Blood Pressure [Ri ght Upper Arm] Pulse Oximetry 95 95 93 Oxygen Delivery Me thod Nasal Cannula Oxygen Flow Rate 2 10/05/25 05:45 10/05/25 06:00 10/05/25 06:28 Temperature 98.3 F Pulse Rate 84 90 Pulse Rate [Pulse Oximeter] 91 Respiratory Rate 20 Blood Pressure Blood Pressure [Ri ght Arm] 126/56 L Blood Pressure [Ri ght Upper Arm] Pulse Oximetry 93 93 93 Oxygen Delivery Me thod Nasal Cannula Oxygen Flow Rate 2 10/05/25 06:28 10/05/25 06:43 10/05/25 07:00 Temperature Pulse Rate 74 Pulse Rate [Pulse Oximeter] Respiratory Rate 20 Blood Pressure Blood Pressure [Ri ght Arm] Blood Pressure [Ri ght Upper Arm] Pulse Oximetry 91 91 Oxygen Delivery Me thod Nasal Cannula Oxygen Flow Rate 2 10/05/25 07:00 10/05/25 12:48 Temperature Pulse Rate Pulse Rate [Pulse Oximeter] 91 Respiratory Rate 20 20 Blood Pressure Blood Pressure [Ri ght Arm] Blood Pressure [Ri ght Upper Arm] Pulse Oximetry 91 Oxygen Delivery Me thod Nasal Cannula Oxygen Flow Rate 2 Labs Labs: Laboratory Results - last 24 hr 12/21/25 12/21/25 12/21/25 03:38 03:40 03:53 WBC 8.29 RBC 3.85 L Hgb 12.0 Hct 35.8 MCV 93 MCH 31 MCHC 34 RDW Coeff of Ata 13.1 Plt Count 212 Neut % (Auto) 76.4 H Lymph % (Auto) 12.9 L [place] % (Auto) 8.8 Eos % (Auto) 1.6 Baso % (Auto) 0.2 Neut # (Auto) 6.30 Lymph # (Auto) 1.10 [place] # (Auto) 0.70 Eos # (Auto) 0.13 Baso # (Auto) 0.02 Abs Immat Gran (auto) 0.01 Imm/Tot Granulo (auto) 0.1 VBG pH 7.414 VBG pCO2 42 VBG pO2 < 30.1 VBG HCO3 27 Sodium 135 Potassium 3.9 Chloride 104 Carbon Dioxide 26 Anion Gap 5 L BUN 11 Creatinine 0.8 Estimated Creat Clear 39.39 Estimated GFR 75 Glucose 112 Lactate 0.6 Calcium 9.6 Total Bilirubin 0.4 AST 43 H ALT 34 Alkaline Phosphatase 100 POC Troponin I High Sensi 11.2 C-Reactive Protein 4.4 H Total Protein 6.4 Albumin 3.9 Lipase Procalcitonin 0.06 Urine Color Urine Appearance Urine pH Ur Specific [place] Urine Protein Urine Glucose (UA) Urine Ketones Urine Blood Urine Nitrite Urine Bilirubin Urine Urobilinogen Ur Leukocyte Esterase Urine RBC Urine WBC Ur Squamous Epith Cells Urine Bacteria Ethyl Alcohol SARS-CoV-2 (PCR) Negative SARS-CoV-2 Influenza Type A (PCR) POSITIVE PCR FLU A A Influenza Type B (PCR) Negative PCR FLU B RSV (PCR) Negative PCR RSV Lab Acknowledgement 10/05/25 10/05/25 10/05/25 04:03 04:04 04:18 WBC RBC Hgb Hct MCV MCH MCHC RDW Coeff of Ata Plt Count Neut % (Auto) Lymph % (Auto) [place] % (Auto) Eos % (Auto) Baso % (Auto) Neut # (Auto) Lymph # (Auto) [place] # (Auto) Eos # (Auto) Baso # (Auto) Abs Immat Gran (auto) Imm/Tot Granulo (auto) VBG pH VBG pCO2 VBG pO2 VBG HCO3 Sodium Potassium Chloride Carbon Dioxide Anion Gap BUN Creatinine Estimated Creat Clear Estimated GFR Glucose Lactate Calcium Total Bilirubin AST ALT Alkaline Phosphatase POC Troponin I High Sensi C-Reactive Protein Total Protein Albumin Lipase 163 Procalcitonin Urine Color Urine Appearance Urine pH Ur Specific [place] Urine Protein Urine Glucose (UA) Urine Ketones Urine Blood Urine Nitrite Urine Bilirubin Urine Urobilinogen Ur Leukocyte Esterase Urine RBC Urine WBC Ur Squamous Epith Cells Urine Bacteria Ethyl Alcohol < 0.01 SARS-CoV-2 (PCR) Influenza Type A (PCR) Influenza Type B (PCR) RSV (PCR) Lab Acknowledgement Test Added 10/05/25 10/05/25 04:24 05:43 WBC RBC Hgb Hct MCV MCH MCHC RDW Coeff of Ata Plt Count Neut % (Auto) Lymph % (Auto) [place] % (Auto) Eos % (Auto) Baso % (Auto) Neut # (Auto) Lymph # (Auto) [place] # (Auto) Eos # (Auto) Baso # (Auto) Abs Immat Gran (auto) Imm/Tot Granulo (auto) VBG pH 7.414 VBG pCO2 42 VBG pO2 < 30.1 VBG HCO3 27 Sodium Potassium Chloride Carbon Dioxide Anion Gap BUN Creatinine Estimated Creat Clear Estimated GFR Glucose Lactate Calcium Total Bilirubin AST ALT Alkaline Phosphatase POC Troponin I High Sensi C-Reactive Protein Total Protein Albumin Lipase Procalcitonin Urine Color Yellow Urine Appearance Clear Urine pH 6.5 Ur Specific [place] 1.020 Urine Protein Negative Urine Glucose (UA) Negative Urine Ketones Negative Urine Blood Trace-intact A Urine Nitrite Negative Urine Bilirubin Negative Urine Urobilinogen 0.2 Ur Leukocyte Esterase Negative Urine RBC 0-2 Urine WBC 0-2 Ur Squamous Epith Cells None Urine Bacteria None Ethyl Alcohol SARS-CoV-2 (PCR) Influenza Type A (PCR) Influenza Type B (PCR) RSV (PCR) Lab Acknowledgement Test Added
--- NOTE | 2025-10-05 14:38 | PC.NURSE ---
End of shift report [id number]: Pleasant and cooperative with cares. Alert and oriented x 4. Denies any pain this shift. SOB with exertion, continues with a productive cough. Sputum yellow tinged and thick. Lung sounds with fine crackles in bases. Tolerated weaning to room air and able to maintain O2 sats >92%. Denies any nausea or vomiting. RT assessment completed by Gal OMER, able to use aerobika independently.
[2025-10-05] MEDS: LATANOPROST 0.005% OPHTH 1 DROP EYE-BOTH (18:22)
[2025-10-06 02:26] VITALS: BP 141/50; PULSE 93; RESP 19; TEMP 36.6; O2SAT 94
[2025-10-06] MEDS: IPRAT-ALBUT 0.5-2.5 MG/3 ML NEB 1 NEB IH ×2 (02:34→06:28)
[2025-10-06 04:03] VITALS: PULSE 94
[2025-10-06 06:19] LABS: HCO3 VBG 23 mmol/L (21-28); PCO2 VBG 35 mmHG (40-50); PO2 VBG 45.3 mmHG (25-47); pH VBG 7.425 (7.32-7.43)
[2025-10-06 06:28] VITALS: O2SAT 95
[2025-10-06 06:47] LABS: Hematocrit* 36.0 % (33.0-51.0); Hemoglobin* 12.0 gm/dL (12.0-16.0); Mean Corpuscular HGB Conc 33 gm/dL (32-36); Mean Corpuscular Hemoglobin 31 pg (26-34); Mean Corpuscular Volume 92 fL (80-100); RDW Coefficient of Variation % 13.2 % (11.5-15.5); Red Blood Count* 3.90 m/uL (4.00-5.20); White Blood Count* 6.32 K/uL (4.50-11.00)
[2025-10-06 06:48] LABS: Immature Granulocytes Abs Auto 0.01 K/uL (0.00-0.30); Immature Granulocytes Pct Auto 0.2 %; Lymphocytes Absolute Auto 1.68 K/uL (0.90-2.90)
[2025-10-06 06:49] LABS: Albumin* 3.7 g/dL (3.3-5.0); Chloride* 107 mmol/L (96-114); Potassium* 3.6 mmol/L (3.6-5.1); Sodium* 136 mmol/L (135-149)
[2025-10-06 06:52] LABS: Alanine Aminotransferase* 36 U/L (4-35); Alkaline Phosphatase* 92 U/L (40-150); Anion Gap 7 mEq/L (7-15); Aspartate Amino Transferase* 54 U/L (12-35); Bilirubin Total* 0.3 mg/dL (0.1-1.5); Blood Urea Nitrogen* 16 mg/dL (7-30); Carbon Dioxide* 22 mmol/L (20-32); Creatinine* 0.6 mg/dL (0.5-1.5); Est. Creatinine Clearance* 37.74; Estimated Glomerular Filt Rate 91 ml/min; Total Protein* 6.3 g/dL (6.0-8.3)
[2025-10-06 06:53] LABS: Calcium* 9.4 mg/dL (8.4-10.6); Glucose* 105 mg/dL (60-115); Slide Review Reflex No
[2025-10-06 07:02] VITALS: PULSE 103
--- NOTE | 2025-10-06 07:37 | PC.NURSE ---
Shift note (): Patient pleasant,?alert?and oriented.?Denied pain.?Ambulating independently in?room.?Noted reddened face. Pt reported that she thought it was from coughing so much, then later was concerned it may be from a medication that she is taking.?Updated charge nurse?and?Sandee. Pt has no complaints?of?facial itching.??
[2025-10-06 07:50] VITALS: BP 138/64; PULSE 104; RESP 18; TEMP 36.6; O2SAT 98
[2025-10-06] MEDS: EZETIMIBE 10 MG TABLET PO (09:14)
[2025-10-06] MEDS: LEVOTHYROXINE 75 MCG TABLET PO (09:14)
[2025-10-06] MEDS: METOPROLOL TARTRATE 50 MG TABLET 25 MG PO (09:14)
[2025-10-06] MEDS: LOSARTAN POTASSIUM 50 MG TABLET 75 MG PO (09:15)
[2025-10-06] MEDS: OMEPRAZOLE 20 MG CAPSULE DR 40 MG PO (09:16)
[2025-10-06] MEDS: SODIUM CHLORIDE 0.9 % (FLUSH) 10 ML SYRINGE 5 ML IVF (09:17)
--- NOTE | 2025-10-06 09:38 | PM.DS1 ---
DS: Providers Provider Date Seen: 10/06/25 Date of admission: 10/05/25 06:17 Primary care physician: Ralph Puri MD Admitting Clinician: Yvrose Michaud DO Consults: 10/05/25 06:43 Consult to Physical Therapy [CONS] Routine Comment: Reason(s) for PT Consult:: Evaluate and Treat Any Restrictions?:: No Restrictions Attending Physician on discharge: Harper Ramon MD [facility] Date of Discharge: 10/06/25 DS: Diagnosis Discharge Diagnosis (1) Acute hypoxic respiratory failure: Status: Acute Problem details: -resolved, discharged on room air -no additional prednisone, antibiotics or antivirals were prescribed (2) Influenza A: Status: Acute Problem details: -symptoms greater than 72 hours. No Tamiflu. -continue supportive care -meeting discharge criteria on the morning of 10/06 (3) Acute metabolic encephalopathy: Status: Acute Problem details: -likely related to acute influenza a, hypoxia and inflammatory cascade -resolving upon arrival to the floor -continued supportive care -resolved and meeting discharge criteria on the morning of 10/06 (4) Moderate persistent asthma: Status: Acute Problem details: Stable, no evidence of exacerbation despite influenza A diagnosis continue budesonide/formoterol (5) Monoclonal paraproteinemia: Status: Acute (6) Hypothyroidism: Status: Acute Problem details: continue home synthroid dose (7) Hypertension: Status: Acute Problem details: continue dual therapy with losartan, metoprolol DS: Summary Hospital Course Hospital Course: HIGH YIELD CARE NOTES FOR FOLLOW-UP -influenza A - symptomatic starting 10/03. Presented to the emergency room on 10/05 with acute delirium -supportive care - no Tamiflu. One dose of ceftriaxone which was not continued when she moved to the floor. Two doses of oral prednisone. This also was not continued at discharge. BRIEF HOSPITAL COURSE: Patient was admitted for 2 days. Synopsis of acute inpatient issues are outlined above. Chronic medical conditions with notable findings outlined above. Tavo presented to the emergency room early on the morning of 10/05 with acute confusion/delirium. She has been coughing for 2 days. Ultimately her workup revealed influenza A. She was admitted under observation. She needed oxygen to keep her sats greater than 90%. Because her symptoms were greater than 72 hours from onset she was not given Tamiflu. There was no complicating pneumonia or asthma exacerbation. The ER did give her 1 dose of ceftriaxone which was not continued on the floor. She received 2 doses of oral prednisone. At discharge she is to resume her home meds. DISCHARGE MEDICATIONS: See Reconciled list - SIGNIFICANT CHANGES: None Specific instructions to the patient and follow-up are outlined below. REVIEW OF SYSTEMS No new chest pain or dyspnea Pain controlled No voiding difficulties Tolerating diet challenge PHYSICAL EXAM: CONSTITUTIONAL: Conversive, good historian. A/O. Knows setting and context. GENERAL: Well-developed, in no respiratory distress. VITAL SIGNS: see record. HEENT: Sclerae are anicteric. No petechiae. She did have some facial flushing. It is possible this was related to her prednisone. CARDIAC: rhythm is regular. There is no S3 or rub. No harsh murmurs. Extremities show trace edema with symmetrical pulses. PULM: good air entry with no wheeze. NEURO: Speech is fluent. A brief neurologic exam is negative. SKIN: No rashes, petechiae, concerning changes PSYCHIATRIC: Euthymic. DISPOSITION: Home with spouse Time spent on discharge 37 minutes. Status at Discharge Functional status at discharge: independent ambulation Overall status at discharge: patient is progressing back to baseline Time Spent with Patient Time attestation: Total time spent providing and/or coordinating discharge services: Time spent: Greater than 30 minutes Exam Const: Vital Signs, click to edit/add: Vital Signs - 24 hr 10/05/25 12:48 10/05/25 15:00 10/05/25 15:00 Temperature 98.2 F Pulse Rate 81 Pulse Rate [Pulse Oximeter] 81 Respiratory Rate 20 15 Blood Pressure [Ri ght Arm] 123/74 Pulse Oximetry 91 96 Oxygen Delivery Me thod Nasal Cannula Room Air Oxygen Flow Rate 2 10/05/25 15:00 10/05/25 19:35 10/05/25 22:21 Temperature 98.3 F 98.3 F Pulse Rate Pulse Rate [Pulse Oximeter] 81 93 96 Respiratory Rate 15 17 16 Blood Pressure [Ri ght Arm] 123/55 L 114/87 Pulse Oximetry 97 98 Oxygen Delivery Me thod Room Air Room Air Oxygen Flow Rate 10/06/25 02:26 10/06/25 04:03 10/06/25 06:28 Temperature 97.9 F Pulse Rate 94 Pulse Rate [Pulse Oximeter] 93 Respiratory Rate 19 [facility] 141/50 H Pulse Oximetry 94 95 Oxygen Delivery Me thod Room Air Oxygen Flow Rate 10/06/25 07:50 Temperature 97.9 F Pulse Rate Pulse Rate [Pulse Oximeter] 104 H Respiratory Rate 18 Blood Pressure [Ri t Arm] 138/64 Pulse Oximetry 98 Oxygen Delivery Me thod Room Air Oxygen Flow Rate DS: Data Data Completed and Pending Labs on day of discharge: Labs from last 24 hours 10/06/25 05:46 WBC 6.32 RBC 3.90 L Hgb 12.0 Hct 36.0 MCV 92 MCH 31 MCHC 33 RDW Coeff of Ata 13.2 Plt Count 205 Neut % (Auto) 62.4 Lymph % (Auto) 26.6 [place] % (Auto) 10.4 Eos % (Auto) 0.2 Baso % (Auto) 0.2 Neut # (Auto) 3.95 Lymph # (Auto) 1.68 [place] # (Auto) 0.70 Eos # (Auto) 0.01 Baso # (Auto) 0.01 Abs Immat Gran (auto) 0.01 Imm/Tot Granulo (auto) 0.2 VBG pH 7.425 VBG pCO2 35 L VBG pO2 45.3 VBG HCO3 23 Sodium 136 Potassium 3.6 Chloride 107 Carbon Dioxide 22 Anion Gap 7 BUN 16 Creatinine 0.6 Estimated Creat Clear 37.74 Estimated GFR 91 Glucose 105 Calcium 9.4 Total Bilirubin 0.3 AST 54 H ALT 36 H Alkaline Phosphatase 92 C-Reactive Protein 4.8 H Total Protein 6.3 Albumin 3.7 Discharge Plan Discharge Disposition: Home w/ Parent or Adult Date of Admission: 10/05/25 06:17 Attending Provider on Discharge: Harper Ramon Primary Care Provider: Ralph Puri Anticipated Discharge Date/Time: 10/06/25 09:25 Discharge Medications: Continued losartan 50 mg tablet 75 mg PO DAILY cyclobenzaprine 10 mg tablet 10 mg PO HS latanoprost 0.005 % drops 1 drp ophthalmic (eye) QPM ipratropium-albuterol 0.5 mg-3 mg(2.5 mg base)/3 mL solution for nebulization 3 ml INHALATION Q6H PRN (Reason: dyspnea) levothyroxine 75 mcg tablet 75 mcg PO QAM esomeprazole magnesium 40 mg capsule,delayed release(DR/EC) 40 mg PO DAILY nystatin 100,000 unit/gram cream 1 applic topical BID PRN metoprolol tartrate 50 mg tablet 25 mg PO .UD Rx Instructions: TAKE 1/2 TABLET IN AM, AND 1 TABLET IN THE PM; MAY TAKE ADDITIONAL 1/2 TAB IF BP>150/90 azelastine 137 mcg (0.1 %) spray,non-aerosol 2 spray INTRANASAL BID albuterol sulfate 90 mcg/actuation HFA aerosol inhaler 2 puff inhalation Q4H PRN (Reason: wheezing) ondansetron 4 mg tablet,disintegrating 4 mg PO Q8H PRN (Reason: nausea/vomiting) ezetimibe 10 mg tablet 10 mg PO DAILY budesonide-formoterol 160-4.5 mcg/actuation HFA aerosol inhaler 2 puff INHALATION BID cholecalciferol (vitamin D3) 25 mcg (1,000 unit) tablet 25 mcg PO DAILY aspirin [Adult Low Dose Aspirin] 81 mg tablet,delayed release (DR/EC) 81 mg PO DAILY Discharge Orders: Discharge Order (Routine); Ordered 10/06/25 Ordered By: Harper Ramon Additional Instructions: Influenza A facts this year: 1. Incubation is on average 1.4 days - so most people show symptoms by 3 days after being exposed. 2. You are contagious from the day before your symptoms until 7 days after symptoms started. 3. Wear a mask when around others for a full week since you started coughing 4. Cough typically will last for 2-3 weeks -You were treated with prednisone and the ER gave you one dose of IV antibiotics -I will not send you home on prednisone nor antibiotics -Some patients get a medicine called Tamiflu but this med needed to be started in the first 48 hours of symptoms. Activity Level: Activity as Tolerated Discharge Diet: Regular Follow Up Appointments: Ralph Puri MD [Primary Care Provider, Family Practice] Referral Note: just at your next routine appt is fine. Forms: [employer] Info Instructions
[2025-10-06 10:08] VITALS: RESP 20; O2SAT 98
--- NOTE | 2025-10-06 10:31 | PC.NURSE ---
Discharge: Patient pleasant and cooperative, alert and oriented. Patient vitally stable, lung clear, BS WNL, IV removed, catheter intact. Patient declined pain. Patient has a intermittent moist cough. Patient tolerating regular diet, urinating well, and reports having a BM early this morning. Patient walked independently. Patient signed belongings sheet and discharge form, with no further questions regarding discharge instructions. Patient left the floor by foot with and belongings at 1029.
== END 2025-10-06 10:29 | disposition home or self-care (01) | DRG 193 ==
LOC: ED 05:35 → MEDSURG 16:26
PROVIDERS: Family Medicine; Admitting Provider Family Medicine; Emergency Provider Family Medicine; PCP Family Medicine; Visit Provider Family Medicine
DX: J10.1 Influenza due to other identified influenza virus with other respiratory manifestations (principal); G93.41 Metabolic encephalopathy; J45.40 Moderate persistent asthma, uncomplicated; R41.0 Disorientation, unspecified; I10 Essential (primary) hypertension; E78.5 Hyperlipidemia, unspecified; E03.9 Hypothyroidism, unspecified; K21.9 Gastro-esophageal reflux disease without esophagitis; D89.2 Hypergammaglobulinemia, unspecified; Z79.899 Other long term (current) drug therapy; Z79.51 Long term (current) use of inhaled steroids
CPT/HCPCS: 36415; 70450; 71046; 80053; 81001; 82077; 82803; 83605; 83690; 84145; 84484; 85025; 86140; 87631; 93005; 94664; 94761; 97110; 97116; 97161; 99284; 99285; A9270; J0456; J0696; J3475; J7030; J7050; J7512